=== PATIENT | male | born 1950 | race Caucasian/White ===

== ENCOUNTER 2017-10-25 08:50 | Inpatient (IN) ==
[2017-10-25] MEDS ORDERED: Ondansetron 4 MG/2 ML VIAL IVP ONE (09:07)
[2017-10-25] MEDS ORDERED: 0.9 % Sodium Chloride 1,000 ML IVC ONE (09:07)
--- NOTE | 2017-10-25 09:09 | Emergency Department Note ---
START Narrative - START START: I examined this patient and my medical decision-making was reviewed with the Resident Physician. I agree with the documented findings, disposition and treatment plan as described except to the extent set forth below. 67 yo M here for abnormal CT that showed questionable appendicitis a few days ago finally was able to make contact with him and they told him to return to the ER. he states hes been having pain in the RLQ for months. getting worse now will repeat CT abd pelvis today; consult with gen surg
--- NOTE | 2017-10-25 09:22 | Emergency Department Note ---
Disposition Clinical Impression: Intussusception of cecum Abdominal pain Qualifiers: Abdominal location: right lower quadrant Qualified Code(s): R10.31 - Right lower quadrant pain Disposition: Admitted As Inpatient Condition: Fair Abdominal Pain HPI - General Chief Complaint: ED Abdominal Pain Stated Complaint: poss appendicitis Time Seen by Provider: 10/25/17 08:58 Source: patient Mode of arrival: ambulatory Limitations: no limitations Nursing Notes Reviewed: Yes Vital Signs Reviewed: Yes - History of Present Illness HPI Narrative: 67-year-old male presents with complaint of right lower quadrant abdominal pain and diarrhea he states his symptoms been for about a month, but he has been worsening for the last few days, he is postop and upper endoscopy, EGD and his gastrologist also got a CT scan of his abdomen, was an abdominal CT without a pelvis without oral contrast, and it showed evidence of mild periappendiceal stranding concerning for possible appendicitis, he would talk to the patient today. Patient states his pain is aching and cramping. Nonradiating, mostly in his right lower quadrant, associated with loose stool but denies melena, hematochezia. The patient states that his symptoms have been worse for the last few days. He reports nausea but no emesis. He denies history of abdominal surgeries, anticoagulant use. Last meal 6:30 AM today was waffles. Pt Subjective Complaint: abdominal pain Onset (ago): week(s) Consistency: intermittent Location: RLQ Pain Severity: moderate Pain Scale: 5 Quality: aching Radiation: none Improves with: nothing Associated symptoms: Reports: nausea, diarrhea. Denies: vomiting, fever, chills , constipation, dysuria, hematemesis - Related Data Home Medications Medication Instructions Recorded Confirmed EPINEPHrine [Epipen] 0.3 mg IM ONCE PRN 10/25/17 10/25/17 Finasteride [Proscar] 5 mg PO DAILY 10/25/17 10/25/17 Omeprazole [PriLOSEC] 20 mg PO DAILY 10/25/17 10/25/17 Tamsulosin [Flomax] 0.4 mg PO DAILY 10/25/17 10/25/17 valACYclovir [Valtrex] 2 tab PO Q12H 10/25/17 10/25/17 Allergies Allergy/AdvReac Type Severity Reaction Status Date / Time Hydromorphone [From Dilaudid] Allergy Unresponsiv Verified 10/25/17 08:55 e meperidine [From Demerol] Allergy Hives Verified 10/25/17 08:55 All systems ED: reviewed and negative except as stated. Review of Systems: As Per HPI Constitutional: Denies: fever, chills Eyes: Denies: eye pain ENT ED: Denies: ear pain Cardiovascular: Denies: chest pain, palpitations Respiratory: Denies: cough, dyspnea Gastrointestinal: Reports: as per HPI, abdominal pain, nausea, diarrhea. Denies : vomiting, hematemesis, melena Genitourinary: Denies: urgency, dysuria Musculoskeletal: Denies: back pain Integumentary: Denies: rash, abrasion Abdominal Pain PMH - Past Medical History Medical history: Reports: non-contributory Male Surgical History: Reports: no surgical history Psychiatric history: Reports: no psych history - Social History Smoking status: Never smoker Alcohol use: Reports: none Drug use: Reports: none Physical Exam Constitutional: alert and oriented, in NAD, vital signs reviewed and wnl HEENT: NCAT, sclera anicteric Neck: normal inspection, neck is supple, trachea midline Resp: normal chest inspection, CTA bilaterally, no resp distress CV: RRR, no m/g/r GI: normal inspection, Soft, or tenderness to palpation in the right lower quadrant, softly distended, no rigidity or peritoneal signs, tenderness at McBurney's point, positive Rovsing sign Back: normal inspection, negative CVA bilaterally, no tenderness to palpation Neuro: A&O3, no gross motor or sensory deficits bilaterally MSK: normal inspection, bilateral UE and LE with normal ROM Skin: No rashes, skin warm, dry, intact - General Limitations: no limitations General appearance: alert, in no apparent distress Course Course Narrative: 59-year-old male with right lower quadrant pain CT scan showed possible appendicitis a few days ago, will repeat labs repeat was CT abdomen and pelvis to evaluate for this possible appendicitis, patient had symptoms for over 4 weeks so this point in serrations for perforation view tolerate food though which is strange given his CT exam findings, a denies request any pain medication at this time - Reevaluation(s) Reevaluation #1: Was evaluated at 1145 by the nurse practitioner for the general surgery service Camelia Arriola, at 1245 call was placed to the patient inpatient neurosurgical service, empiric antibiotics were started 2 hours previously, the patient is admitted in stable condition. Time: 14:17 - Consultations Consultation #1: Consultation general surgeon Dr. Marrero, plan is for general surgical evaluation at bedside, patient started empirically on IV antibiotics after blood cultures, nothing by mouth at this time, maintenance fluids running. Time: 11:10 Vital Signs Temperature 97.5 F L 10/25/17 08:52 Pulse Rate 102 10/25/17 08:52 Respiratory Rate 18 10/25/17 08:52 Blood Pressure 166/84 10/25/17 08:52 O2 Sat by Pulse Oximetry 100 10/25/17 08:52 Temperature 98.1 F 10/25/17 14:02 Pulse Rate 72 10/25/17 14:02 Respiratory Rate 16 10/25/17 14:02 Blood Pressure 122/67 10/25/17 14:02 O2 Sat by Pulse Oximetry 98 10/25/17 14:10 Oxygen Delivery Oxygen Delivery Room Air Abdominal Pain - Differential Diagnosis Differential Diagnosis: Likely: acute appendicitis, colonic obstruction, diverticulitis, diverticulosis, endometriosis, gastroenteritis - Medical Records Medical records reviewed: Yes I reviewed the patient's medical records. - Lab Data Lab results reviewed: Yes I reviewed the patient's lab results. Result diagrams: 10/25/17 09:13 10/25/17 09:13 Lab Results 10/25/17 10/25/17 10/25/17 Range/Units 09:13 09:13 09:13 WBC 8.8 (4.3-11.1) K/mcL RBC 4.47 (4.19-5.50) M/mcL Hgb 12.9 (12.9-16.9) g/dL Hct 40.1 (37.5-50.1) % MCV 89.7 (83.0-100.0) fL MCH 28.9 (28.0-33.3) pg MCHC 32.2 (31.6-35.5) g/dL RDW 13.8 (11.5-14.5) % Plt Count 188 (140-400) K/mcL MPV 10.1 (9.4-12.4) fL Immature Gran % 0.3 (0-4) % Seg Neutrophils % 71.4 % Lymphocytes % 16.7 % Monocytes % 9.1 % Eosinophils % 2.2 % Basophils % 0.3 % Neutrophils # 6.3 (1.6-8.9) K/mcL Lymphocytes # 1.5 (0.6-4.6) K/mcL Monocytes # 0.8 (0.0-1.3) K/mcL Eosinophils # 0.2 (0.0-0.6) K/mcL Basophils # 0.0 (0.0-0.2) K/mcL PT 11.6 (9.4-12.1) Seconds INR 1.1 APTT 33.2 (26.0-36.0) Seconds Sodium 138 (136-145) mEq/L Potassium 3.6 (3.5-5.1) mEq/L Chloride 105 (98-107) mEq/L Carbon Dioxide 28 (23-29) mEq/L BUN 13 (8-23) mg/dL Creatinine 1.14 (0.70-1.30) mg/dL Est GFR ( Amer) > 60 (> 60) Est GFR (Non-Af Amer) > 60 (> 60) BUN/Creatinine Ratio 11 (6-26) Glucose 103 (70-105) mg/dL Calculated Osmolality 286 (280-300) Calcium 9.2 (8.6-10.3) mg/dL Total Bilirubin 0.5 (0.3-1.0) mg/dL Direct Bilirubin 0.1 (0.0-0.2) mg/dL Indirect Bilirubin 0.4 (0.0-1.2) mg/dL AST 15 (13-39) Units/L ALT 15 (7-52) Units/L Alkaline Phosphatase 57 (34-104) Units/L Serum Total Protein 6.8 (6.4-8.9) g/dL Albumin 4.3 (3.5-5.7) g/dL Globulin 2.5 (2.4-3.5) g/dL Albumin/Globulin Ratio 1.7 (1.1-2.2) Lipase 46 (11-82) Units/L Carcinoembryonic Ag 2.6 (Less than 5.0) ng/mL Urine Color (Yellow) Urine Clarity (Clear) Urine pH (5.0-8.0) pH Units Ur Specific [place] (1.010-1.025) Urine Protein (Neg-Trace) mg/dL Urine Glucose (UA) (Normal) mg/dL Urine Ketones (Negative) mg/dL Urine Blood (Negative) Urine Nitrite (Negative) Urine Bilirubin (Negative) Urine Urobilinogen (Normal) mg/dL Ur Leukocyte Esterase (Negative) Ur Culture Indicated? (NO) 10/25/17 Range/Units 09:20 WBC (4.3-11.1) K/mcL RBC (4.19-5.50) M/mcL Hgb (12.9-16.9) g/dL Hct (37.5-50.1) % MCV (83.0-100.0) fL MCH (28.0-33.3) pg MCHC (31.6-35.5) g/dL RDW (11.5-14.5) % Plt Count (140-400) K/mcL MPV (9.4-12.4) fL Immature Gran % (0-4) % Seg Neutrophils % % Lymphocytes % % Monocytes % % Eosinophils % % Basophils % % Neutrophils # (1.6-8.9) K/mcL Lymphocytes # (0.6-4.6) K/mcL Monocytes # (0.0-1.3) K/mcL Eosinophils # (0.0-0.6) K/mcL Basophils # (0.0-0.2) K/mcL PT (9.4-12.1) Seconds INR APTT (26.0-36.0) Seconds Sodium (136-145) mEq/L Potassium (3.5-5.1) mEq/L Chloride (98-107) mEq/L Carbon Dioxide (23-29) mEq/L BUN (8-23) mg/dL Creatinine (0.70-1.30) mg/dL Est GFR ( Amer) (> 60) Est GFR (Non-Af Amer) (> 60) BUN/Creatinine Ratio (6-26) Glucose (70-105) mg/dL Calculated Osmolality (280-300) Calcium (8.6-10.3) mg/dL Total Bilirubin (0.3-1.0) mg/dL Direct Bilirubin (0.0-0.2) mg/dL Indirect Bilirubin (0.0-1.2) mg/dL AST (13-39) Units/L ALT (7-52) Units/L Alkaline Phosphatase (34-104) Units/L Serum Total Protein (6.4-8.9) g/dL Albumin (3.5-5.7) g/dL Globulin (2.4-3.5) g/dL Albumin/Globulin Ratio (1.1-2.2) Lipase (11-82) Units/L Carcinoembryonic Ag (Less than 5.0) ng/mL Urine Color Yellow (Yellow) Urine Clarity Clear (Clear) Urine pH 5.5 (5.0-8.0) pH Units Ur Specific [place] 1.022 (1.010-1.025) Urine Protein Negative (Neg-Trace) mg/dL Urine Glucose (UA) Normal (Normal) mg/dL Urine Ketones Negative (Negative) mg/dL Urine Blood Negative (Negative) Urine Nitrite Negative (Negative) Urine Bilirubin Negative (Negative) Urine Urobilinogen Normal (Normal) mg/dL Ur Leukocyte Esterase Negative (Negative) Ur Culture Indicated? NO (NO) - Radiology Data Radiology results reviewed: Yes I reviewed the patient's radiology results. Abdomen/Pelvis CT 10/25/17 09:05 IMPRESSION: There is masslike thickening at the ileocecal valve. There also is suggestion of a small amount of intussusception. Findings concerning for malignancy. This appears to involve the appendix, which is not well visualized. An atypical presentation of appendicitis with reactive wall thickening of the adjacent ileocecal valve is in the differential diagnosis but considered less likely. Small area of stranding of fat and possible mild wall thickening associated with the mid sigmoid colon in the anterior pelvis. Correlate for the possibility of coexistent diverticulitis in addition to the above discussed right lower quadrant process. Surgical consultation for the above is recommended. D/ / Otilio Roland MD / Otilio Roland MD Interpreting Provider: Otilio Roland MD - EKG Data EKG attestation: Yes I reviewed and interpreted this EKG. EKG shows normal: sinus rhythm (79 bpm HI 150 uricemia 3 QTC [address] segment elevations or depressions.)
[2017-10-25 09:29] LABS: Basophils % 0.3 %; Eosinophils # 0.2 K/mcL (0.0-0.6); Eosinophils % 2.2 %; Hematocrit 40.1 % (37.5-50.1); Hemoglobin 12.9 g/dL (12.9-16.9); Immature Granulocytes % 0.3 % (0-4); Lymphocytes # 1.5 K/mcL (0.6-4.6); Lymphocytes % 16.7 %; Mean Corpuscular HGB Conc 32.2 g/dL (31.6-35.5); Mean Corpuscular Hemoglobin 28.9 pg (28.0-33.3); Mean Corpuscular Volume 89.7 fL (83.0-100.0); Mean Platelet Volume 10.1 fL (9.4-12.4); Monocytes # 0.8 K/mcL (0.0-1.3); Monocytes % 9.1 %; Neutrophils # 6.3 K/mcL (1.6-8.9); Platelet Count 188 K/mcL (140-400); Red Blood Count 4.47 M/mcL (4.19-5.50); Red Cell Distribution Width 13.8 % (11.5-14.5); Segmented Neutrophils % 71.4 %
[2017-10-25 09:35] LABS: Bilirubin,Urine Negative (Negative); Blood,Urine Negative (Negative); Clarity,Urine Clear (Clear); Color,Urine Yellow (Yellow); Glucose,Urine (UA) Normal (Normal); Ketones,Urine Negative (Negative); Leukocyte Esterase,Urine Negative (Negative); Nitrite,Urine Negative (Negative); PH,Urine 5.5 pH Units (5.0-8.0); Protein,Urine Negative (Neg-Trace); Specific Gravity,Urine 1.022 (1.010-1.025); Urobilinogen,Urine Normal (Normal)
[2017-10-25 09:35] LABS: INR 1.1; Prothrombin Time 11.6 Seconds (9.4-12.1)
[2017-10-25 09:38] LABS: Activated Partial Thrombo Time 33.2 Seconds (26.0-36.0)
[2017-10-25 09:48] LABS: Alanine Aminotransferase 15 Units/L (7-52); Albumin 4.3 g/dL (3.5-5.7); Albumin/Globulin Ratio 1.7 (1.1-2.2); Alkaline Phosphatase 57 Units/L (34-104); Aspartate Amino Transferase 15 Units/L (13-39); BUN/Creatinine Ratio 11 (6-26); Bilirubin,Direct 0.1 mg/dL (0.0-0.2); Bilirubin,Indirect 0.4 mg/dL (0.0-1.2); Bilirubin,Total 0.5 mg/dL (0.3-1.0); Blood Urea Nitrogen 13 mg/dL (8-23); Calcium 9.2 mg/dL (8.6-10.3); Carbon Dioxide 28 mEq/L (23-29); Chloride 105 mEq/L (98-107); Globulin 2.5 g/dL (2.4-3.5); Glucose 103 mg/dL (70-105); Lipase 46 Units/L (11-82); Osmolality,Calculated 286 (280-300); Potassium 3.6 mEq/L (3.5-5.1); Sodium 138 mEq/L (136-145); Total Protein 6.8 g/dL (6.4-8.9); eGFR For African Americans > 60 (> 60); eGFR For Non-African Americans > 60 (> 60)
[2017-10-25] MEDS ORDERED: MetroNIDAZOLE 500 MG/100 ML 500 MG/100 ML BAG IVPB ONE (10:40)
[2017-10-25] MEDS ORDERED: 0.9 % Sodium Chloride 1,000 ML IVC SCH (11:15)
--- NOTE | 2017-10-25 13:06 | General Surg History&Physical ---
Date of Encounter: 10/25/17 Time of Encounter: 11:45 Assessment and Plan (1) Cecum mass Current Visit: Yes Status: Acute The assessment and plan as outlined above was discussed with the patient and/or family members who expressed understanding and agreement. All questions were answered. Discussed the risks, benefits, alternatives, expected outcomes with the patient and his agreement to proceed with a right hemicolectomy with Dr. Marrero in the next 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 All questions were answered. Continue home medication regimen when able to take PO Qualifiers: Lower urinary tract symptom presence: symptoms absent Qualified Code(s): N40.0 - Benign prostatic hyperplasia without lower urinary tract symptoms (3) DVT prophylaxis Current Visit: Yes Status: Acute The assessment and plan as outlined above was discussed with the patient and/or family members who expressed understanding and agreement. All questions were answered. Heparin 5000 units subcutaneous twice daily for DVT prophylaxis EPCDs to bilateral lower extremities for DVT prophylaxis Ambulatory hallways 3 times a day with assistance History of Present Illness Chief complaint: Right sided abdominal pain HPI: Mr. Sierra is a 67 year old male with a past medical history significant for chronic diarrhea and BPH. He reports that he began having right-sided abdominal discomfort in July 2017. He describes the pain as a cramping discomfort. He states that the pain has progressed to the point that it is constant and more intense. He was seen by Dr. Harding with gastroenterology and had a CAT scan of the abdomen and pelvis completely. That study was completed this morning and shows concerns for a malignancy associated with the ileocecal valve. The patient was asked to come to the hospital for further workup and treatment. He reports that he has had diarrhea which has been ongoing since 1993. He states that he takes over the counter medications such as Imodium and Pepto-Bismol to control his symptoms. He states that these had to do this for years. He typically takes Pepto-Bismol every evening before bed. He does report black stools with taking the Pepto-Bismol otherwise he states he has liquid, brown bowel movements. He does report nausea on occasion but states that he has had no vomiting. Denies any changes in appetite. He states that he did have wall. For breakfast. He denies any melena or hematochezia. He denies any fevers or chills. He denies any unexplained weight loss. He does report weight gain. He denies any chest pain or shortness of breath. He denies any difficulty with urination. He states his last colonoscopy was complete and 2013. He reports that he had a normal exam and was scheduled to have a repeat in 5 years. He denies any family history of colon cancer. Past Med Surg Social Fam HX - Past Medical History Source: patient, old records reviewed Medical history: other (BPH, chronic diarrhea) Psychiatric history: no psych history - Past Surgical History Surgical History: no surgical history - Social History Smoking Status: Never smoker Smokeless Tobacco Status: No Alcohol use: none Drug use: none Current living situation: Home - Independent Activity Level: Independent ambulation - Family History Mother Living Status: Still Living Hx Family Cancer: Yes ("female cancer" s/p hysterectomy) Father Living Status: Age at : 62 Cause of : pancreatic cancer Hx Family Cancer: Yes (Pancreatic cancer) Medications and Allergies Tamsulosin [Flomax] 07/28/17 [History] 3 Allergy/AdvReac Type Severity Reaction Status Date / Time Hydromorphone [From Dilaudid] Allergy Unresponsiv Verified 10/25/17 08:55 e meperidine [From Demerol] Allergy Hives Verified 10/25/17 08:55 Review of Systems All systems PM: reviewed and no additional remarkable complaints except as stated (HPI) All systems PM: A 10-system review of systems was performed and is negative for pertinent findings except as documented above in the HPI. General Surgery Exam Initial Vital Signs Temp Pulse Resp BP Pulse Ox 97.5 F L 102 18 166/84 100 10/25/17 08:52 10/25/17 08:52 10/25/17 08:52 10/25/17 08:52 10/25/17 08:52 - General physical appearance well developed, well nourished, no distress, moderate pain - Eyes PERRL, normal ocular movement - ENT normal mucosa, atraumatic, normocephalic - Neck trachea midline - Respiratory normal respiratory effort, clear to auscultation - Cardiovascular Cardiovascular exam: Present: RRR - Abdomen Abdomen general surgery: Present: bowel sounds present, soft, tender Abdominal Tenderness: Present: RLQ - Integumentary Integumentary general surgery: Present: warm and dry - Neurologic Present: CN 2-12 grossly intact - Musculoskeletal Present: normal gait, normal posture - Psychiatric Psychiatric general surgery: Present: appropriate, oriented to person, oriented to place, oriented to time, speech is normal, memory intact Results - Labs 10/25/17 09:13 10/25/17 09:13 Diabetes panel 10/25/17 Range/Units 09:13 Sodium 138 (136-145) mEq/L Potassium 3.6 (3.5-5.1) mEq/L Chloride 105 (98-107) mEq/L Carbon Dioxide 28 (23-29) mEq/L BUN 13 (8-23) mg/dL Creatinine 1.14 (0.70-1.30) mg/dL Glucose 103 (70-105) mg/dL Calcium 9.2 (8.6-10.3) mg/dL AST 15 (13-39) Units/L ALT 15 (7-52) Units/L Alkaline Phosphatase 57 (34-104) Units/L Albumin 4.3 (3.5-5.7) g/dL Calcium panel 10/25/17 Range/Units 09:13 Calcium 9.2 (8.6-10.3) mg/dL Albumin 4.3 (3.5-5.7) g/dL Pituitary panel 10/25/17 Range/Units 09:13 Sodium 138 (136-145) mEq/L Potassium 3.6 (3.5-5.1) mEq/L Chloride 105 (98-107) mEq/L Carbon Dioxide 28 (23-29) mEq/L BUN 13 (8-23) mg/dL Creatinine 1.14 (0.70-1.30) mg/dL Glucose 103 (70-105) mg/dL Calcium 9.2 (8.6-10.3) mg/dL Adrenal panel 10/25/17 Range/Units 09:13 Sodium 138 (136-145) mEq/L Potassium 3.6 (3.5-5.1) mEq/L Chloride 105 (98-107) mEq/L Carbon Dioxide 28 (23-29) mEq/L BUN 13 (8-23) mg/dL Creatinine 1.14 (0.70-1.30) mg/dL Glucose 103 (70-105) mg/dL Calcium 9.2 (8.6-10.3) mg/dL Total Bilirubin 0.5 (0.3-1.0) mg/dL AST 15 (13-39) Units/L ALT 15 (7-52) Units/L Alkaline Phosphatase 57 (34-104) Units/L Albumin 4.3 (3.5-5.7) g/dL All other labs normal. - Imaging CT scan - abdomen: report reviewed CT scan - pelvis: report reviewed - Attending Attestation For this encounter, I have reviewed the POLICE COMMISSIONER or PA documentation, treatment plan, and medical decision making; and I have had face to face time with this patient.
[2017-10-25] MEDS ORDERED: Ondansetron 4 MG/2 ML VIAL IVP PRN (13:17)
[2017-10-25] MEDS ORDERED: Naloxone 0.4 MG/ML INJ IVP PRN ×2 (13:17→23:31)
[2017-10-25] MEDS ORDERED: *HR* OxyCODONE Immed Rel 5 MG TABLET PO PRN ×2 (13:23→23:31)
[2017-10-25] MEDS ORDERED: Morphine Oral CONC 5 MG/0.25 ML ORAL.SYG PO PRN (13:24)
[2017-10-25] MEDS: 0.9 % Sodium Chloride 1,000 ML IVC SCH ×2 (14:03→23:27)
[2017-10-25] MEDS: Ketorolac 15 MG/ML VIAL IVP SCH ×2 (14:08→23:24)
[2017-10-25 14:12] LABS: Carcinoembryonic Antigen 2.6 ng/mL (Less than 5.0)
--- NOTE | 2017-10-25 14:39 | Electrocardiograph Report ---
[place] [id number] Test Date: 2017-10-25 Pat Name: Alexis Sierra Department: [id number] Room: 3B13 Gender: M Play Writer: : 1950 Requested By: Anastacio Melchor Order Number: [id number] Reading MD: Donell Cummins DO Measurements Intervals Bessie Rate: 79 P: 51 NH: 150 QRS: 17 QRSD: 83 T: 43 QT: 373 QTc: 407 Interpretive Statements SINUS RHYTHM Electronically Signed On 10-25-2017 14:37:36 EST by Donell Cummins DO
[2017-10-25] MEDS ORDERED: cefOXitin 2,000 MG in Water for inj. (sterile) 20 ML 10 ML IVP ONE (16:00)
[2017-10-25] MEDS ORDERED: *HR* Ropivacaine/PF 0.5% 20 ML VIAL ONE (18:45)
--- NOTE | 2017-10-25 18:51 | Anesthesia Evaluation PreOp ---
Date of Encounter: 10/25/17 Time of Encounter: 18:49 - Past History Planned Operation: Robotic Right Hemicolectomy Cardiac History: Denies any Significant Hx Pulmonary History: Denies Any Significant HX RODEO RIDER History: Denies Any Significant HX Other Medical History: Renal (BPH), GERD Anesthesia History: Past Anesthesia (no prior surgery) Alcohol Use: none Drug use: none Medications and Allergies EPINEPHrine [Epipen] 0.3 mg IM ONCE PRN 10/25/17 [History] Finasteride [Proscar] 5 mg PO DAILY 10/25/17 [History] Omeprazole [PriLOSEC] 20 mg PO DAILY 10/25/17 [History] Tamsulosin [Flomax] 0.4 mg PO DAILY 10/25/17 [History] valACYclovir [Valtrex] 2 tab PO Q12H 10/25/17 [History] 3 Allergy/AdvReac Type Severity Reaction Status Date / Time Hydromorphone [From Dilaudid] Allergy Unresponsiv Verified 10/25/17 08:55 e meperidine [From Demerol] Allergy Hives Verified 10/25/17 08:55 - Meds/Allergy Pre-op Review Medications Reviewed: Yes Allergies Reviewed: Yes Beta Blockers on Current Med List: No Anesthesia Results - Labs 10/25/17 09:13 10/25/17 09:13 - Imaging EKG: report reviewed (10/25/2017 SINUS RHYTHM) Additional studies: 03/13/2012 Stress Impression: Stress Note * Resting ECG demonstrated normal sinus rhythm. * No baseline arrhythmias were noted. * EKG is negative for ischemia. * No arrhythmias were noted during stress * The exercise capacity was fair. * Patient had no chest pain during stress. Hemodynamic response * The patient demonstrated normal blood pressure response. Study Quality/Desc. * Study quality is average Gated EF % * Gated EF = 69% Left Ventricle * The left ventricle does not appear dilated. NORMALS * Normal wall motion in stress. * Normal Segmental Perfusion in rest. Inferior Perfusion Stress * The basal inferoseptal segment shows a mild reduction in perfusion. TID * There is no evidence of transient ischemic dilatation Nuclear comments * Mild Reversible defect - basal infero-septal wall suggestive of ischemia. * Negative for infarct. DR DURANT NOTIFIED. Stress Test Summary: Stress Test Type: Treadmill Protocol: Gideon Baseline Information: Initial Heart Rate: 75 Blood Pressure: 104/70 Stress Information: Stress Time: 5 min 00 sec Test Terminated Due to: Target heart rate achieved Maximum Blood Pressure: 164/68 Maximum Heart Rate: 155 Percent Maximum Heart Rate Achieved: 99 Double Product: 25,420 METS Reached: 6 Symptoms: No chest symptoms, No chest symptoms Nuclear Agent: Type: Tc99m Sestamibi Resting Dose: [10.36] Stress Dose: [32.8] Medication Given: Time Medication Dose Units Route Findings: Stress Note * Resting ECG demonstrated normal sinus rhythm. * No baseline arrhythmias were noted. * EKG is negative for ischemia. * No arrhythmias were noted during stress * The exercise capacity was fair. * Patient had no chest pain during stress. Hemodynamic response * The patient demonstrated normal blood pressure response. Study Quality/Desc. * Study quality is average Gated EF % * Gated EF = 69% Left Ventricle * The left ventricle does not appear dilated. NORMALS * Normal wall motion in stress. * Normal Segmental Perfusion in rest. Inferior Perfusion Stress * The basal inferoseptal segment shows a mild reduction in perfusion. TID * There is no evidence of transient ischemic dilatation Patient reports that he had left heart cath at [facility] in [place] after stress test and that it did not reveal any significant lesions Anesthesia Exam Vital Signs/O2 Sat/Glucose, Most Recent Temp Pulse Resp BP Pulse Ox 98.1 F 72 16 122/67 98 10/25/17 14:02 10/25/17 14:02 10/25/17 14:02 10/25/17 14:02 10/25/17 14:10 Blood Glucose* 118 Height: 5'8''/1.73 m Weight: 190 lbs/86.2 kg NPO (# of Hours): 8 Pain Scale: 0 Pain Scale Used: Numeric (1 - 10) - HEENT Pupil (Motor): EOMI Mallampati: II Teeth: Normal Oral Opening: Greater than 3 - RODEO RIDER LOC: Oriented RODEO RIDER Motor: Normal RUE, Normal LUE, Normal RLE, Normal LLE, Normal Face RODEO RIDER Sensory: Normal: RUE, LUE, RLE, LLE, Face - Cardiac Rhythm: Regular Murmur: None - Pulmonary Breath Sounds: bilateral Clear Respiratory Effort: Symmetrical Anesthesia Assess/Plan ASA Score: 2 Modified Stites Scale for Level of Consciousness: Cooperative, oriented, and tranquil Anesthetic Plan: General, Regional Monitoring Plan: Standard Monitors Recovery Plan: PACU
[2017-10-25] MEDS ORDERED: *HR* Midazolam HCl 5 MG/5 ML VIAL IVP ONE (19:04)
--- NOTE | 2017-10-25 19:18 | Anesthesia Procedures ---
Date of Encounter: 10/25/17 Time of Encounter: 19:16 Procedures: Anesthesia - Nerve Block Procedure Date: 10/25/17 Time: 19:16 Allergies/Adv Reactions: dilaudid, demerol Pre-op Diagnosis: cecal mass Surgical Procedure: robot rt colectomy Checklist: Correct Patient Identifier Correct side: Right Blood Thinner: No Monitor Applied: EKG, BP, Pulse Oximetry Supplemental Oxygen via Nasal Cannula (L/min): 3 Sedation: Versed (mg): 5 Indication: Post Op Analgesia Pre-op Neuro Deficits: No Block Type: Other (tap) Catheter placed: No Sterile Technique: Yes Ultrasound used: Yes Anatomy identified: Yes Visual spread of Local: Yes Blood on Needle Aspiration: No Smooth Injection of Local: Yes Pain with Injection of Local: No Prep: Chlorhexadine Needle: 21 x 100 mm Stimuplex Local: Ropivacaine (0.25 20cc each side) Volume (cc): 40 Number of Attempts: 1 Complications: None/effective block Vitals: 127/70 78 16 98% Comments: aseptic, ttolerated well, VSS
[2017-10-25] MEDS ORDERED: *HR* Propofol 200 MG/20 ML VIAL IVP ONE (19:44)
[2017-10-25] MEDS ORDERED: Dexamethasone 4 MG/ML VIAL ONE (19:45)
[2017-10-25] MEDS ORDERED: Lidocaine -MPF 2% 2 ML VIAL ONE (19:45)
[2017-10-25] MEDS ORDERED: *HR* Succinylcholine 200 MG/10 ML VIAL IVP ONE (19:45)
[2017-10-25] MEDS ORDERED: Ondansetron 4 MG/2 ML VIAL ONE (19:45)
[2017-10-25] MEDS ORDERED: *HR* Rocuronium Bromide 50 MG/5 ML VIAL ONE (19:45)
[2017-10-25] MEDS ORDERED: Ketamine *HR* 500 MG/10 ML MDV ONE (19:55)
[2017-10-25] MEDS: MORPHINE SUL Oral CONC 10 MG/0.5 ML ORAL.SYG SL PRN ×2 (22:29→22:35)
[2017-10-25] MEDS ORDERED: MORPHINE SUL Oral CONC 10 MG/0.5 ML ORAL.SYG SL PRN (23:31)
[2017-10-25] MEDS ORDERED: MORPHINE SUL Oral CONC 10 MG/0.5 ML ORAL.SYG PO PRN (23:31)
[2017-10-25] MEDS ORDERED: Chloraseptic Spray 177 ML BOTTLE MM PRN (23:38)
--- NOTE | 2017-10-25 23:58 | Anesthesia Evaluation Post Op ---
Date of Encounter: 10/25/17 Time of Encounter: 23:57 - Vital Signs Vital Signs: Vital Signs/O2 Sat, Most Current Temp Pulse Resp BP Pulse Ox 97.6 F 78 16 115/69 96 10/25/17 23:21 10/25/17 23:21 10/25/17 23:21 10/25/17 23:21 10/25/17 23:21 - Lungs Lungs: Clear Ascult./Percussion - Airway Airway: Non-obstructed - Cardiovascular Regular Rate - Mental Status Mental Status: Alert & Oriented, Answers Appropriately - Pain Pain Scale: 2 Pain Scale used: Numeric (1 - 10) - Nausea Vomiting Nausea Vomiting: Not Present - Hydration Hydration: NPO, Hair catheter - Discharge PostOp Status: Transfer Patient to floor
[2017-10-26] MEDS: Ondansetron 4 MG/2 ML VIAL IVP PRN ×3 (00:42→16:19)
[2017-10-26] MEDS ORDERED: Ketorolac 15 MG/ML VIAL IVP SCH (01:30)
[2017-10-26 04:49] LABS: Basophils % 0.1 %; Hematocrit 32.9 % (37.5-50.1); Immature Granulocytes % 0.3 % (0-4); Lymphocytes # 0.6 K/mcL (0.6-4.6); Lymphocytes % 5.5 %; Mean Corpuscular HGB Conc 31.3 g/dL (31.6-35.5); Mean Corpuscular Hemoglobin 28.5 pg (28.0-33.3); Mean Corpuscular Volume 90.9 fL (83.0-100.0); Mean Platelet Volume 10.4 fL (9.4-12.4); Monocytes # 0.7 K/mcL (0.0-1.3); Monocytes % 6.5 %; Neutrophils # 9.4 K/mcL (1.6-8.9); Platelet Count 185 K/mcL (140-400); Red Blood Count 3.62 M/mcL (4.19-5.50); Segmented Neutrophils % 87.6 %
[2017-10-26 04:50] LABS: Hemoglobin 10.3 g/dL (12.9-16.9)
[2017-10-26 05:07] LABS: BUN/Creatinine Ratio 10 (6-26); Blood Urea Nitrogen 12 mg/dL (8-23); Calcium 8.3 mg/dL (8.6-10.3); Carbon Dioxide 24 mEq/L (23-29); Chloride 107 mEq/L (98-107); Glucose 156 mg/dL (70-105); Osmolality,Calculated 291 (280-300); Potassium 4.1 mEq/L (3.5-5.1); Sodium 139 mEq/L (136-145); eGFR For African Americans > 60 (> 60); eGFR For Non-African Americans > 60 (> 60)
[2017-10-26] MEDS ORDERED: *HR* Heparin 5,000 UNIT/ML VIAL SQ ONE ×2 (06:00)
[2017-10-26] MEDS: Ketorolac 15 MG/ML VIAL IVP SCH ×2 (06:01→10:51)
[2017-10-26] MEDS: 0.9 % Sodium Chloride 1,000 ML IVC SCH ×3 (07:52→22:39)
[2017-10-26] MEDS ORDERED: Pantoprazole 40 MG VIAL IVP SCH ×2 (09:00)
--- NOTE | 2017-10-26 10:33 | General Surgery Progress Note ---
Date of Encounter: 10/26/17 Time of Encounter: 10:00 - Assessment and Plan (1) Cecum mass Current Visit: Yes Status: Acute Aprox 11 hours post-op of by Dr. Marrero. Alexis states his abdominal discomfort is poorly controlled because he doesn't like to take the narcotics as they make him feel nauseated. He has not gotten out of bed, but requests assistance to get up. His bowel signs are faint and hypoactive at best as expected. His abdominal exam is overall benign. Plan: -await return bowel function -continue supportive care and discomfort management: add scheduled IV ofirmev to alternate with scheduled ketorolac and continue PRN sublingual narcotic. -Continue G.I. and DVT prophylaxis -out of bed to chair at least TID and ambulate and halls. -NPO except limited ice chips for comfort. He may suck on hardtack candy or chew gum also. When bowel sounds returned we will consider advancing to clear liquid diet. -Continue martinez until he is able to resume his home BPH medications. -Repeat am labs (2) BPH (benign prostatic hyperplasia) Current Visit: Yes Status: Chronic See above Qualifiers: Lower urinary tract symptom presence: symptoms absent Qualified Code(s): N40.0 - Benign prostatic hyperplasia without lower urinary tract symptoms (3) DVT prophylaxis Current Visit: Yes Status: Acute EPCDs while in bed. Heparin SQ BID AMbulate and up to chair TID Subjective Patient reports: no new complaints, still having pain (States it feels like "surgery soreness"), voiding w/o difficulty (Per martinez; states difficulty urinating at baseline and take finesteride and flomax), no flatus, no bowel movement, nausea, afebrile, other (runny nose) Objective Vital Signs - Last 8 Hours Temp Pulse Resp BP Pulse Ox 10/26/17 06:47 98.4 F 79 16 93/58 96 10/26/17 04:34 79 102/63 99 10/26/17 03:10 99.6 F 79 18 96/62 100 Intake and Output 10/25/17 10/26/17 10/26/17 23:59 07:59 15:59 Intake Total 0 / 0 Output Total 25 / 25 300 / 300 Balance -25 / -25 -300 / -300 Intake: Oral 0 / 0 Output: Estimated Blood Loss 25 / 25 Catheter 300 / 300 Other: Blood Glucose* 155 - General physical appearance no distress, moderate pain - Eyes normal ocular movement - ENT normal nares, normal mucosa, atraumatic, normocephalic - Neck Neck exam: trachea midline, no venous distension - Respiratory normal expansion, normal respiratory effort, clear to auscultation - Cardiovascular Cardiovascular exam: Present: RRR - Abdomen Abdomen: Present: soft, tender (Expected postoperative). Absent: bowel sounds present (FAINT HYPOACTIVE AT BEST) Hernia: none - Incision Incision: Present: clean and dry, intact - Neurologic normal coordination, normal sensation - Musculoskeletal normal posture - Psychiatric oriented to time, oriented to person, oriented to place, speech is normal, memory intact - Labs 10/26/17 03:19 10/26/17 03:19 Diabetes panel 10/26/17 Range/Units 03:19 Sodium 139 (136-145) mEq/L Potassium 4.1 (3.5-5.1) mEq/L Chloride 107 (98-107) mEq/L Carbon Dioxide 24 (23-29) mEq/L BUN 12 (8-23) mg/dL Creatinine 1.20 (0.70-1.30) mg/dL Glucose 156 H (70-105) mg/dL Calcium 8.3 L (8.6-10.3) mg/dL Calcium panel 10/26/17 Range/Units 03:19 Calcium 8.3 L (8.6-10.3) mg/dL Pituitary panel 10/26/17 Range/Units 03:19 Sodium 139 (136-145) mEq/L Potassium 4.1 (3.5-5.1) mEq/L Chloride 107 (98-107) mEq/L Carbon Dioxide 24 (23-29) mEq/L BUN 12 (8-23) mg/dL Creatinine 1.20 (0.70-1.30) mg/dL Glucose 156 H (70-105) mg/dL Calcium 8.3 L (8.6-10.3) mg/dL Adrenal panel 10/26/17 Range/Units 03:19 Sodium 139 (136-145) mEq/L Potassium 4.1 (3.5-5.1) mEq/L Chloride 107 (98-107) mEq/L Carbon Dioxide 24 (23-29) mEq/L BUN 12 (8-23) mg/dL Creatinine 1.20 (0.70-1.30) mg/dL Glucose 156 H (70-105) mg/dL Calcium 8.3 L (8.6-10.3) mg/dL - VTE Documentation of Mechanical Device: Intermittent pneumatic compression device Consult Discharge Plan - Plan [facility]errals: [facility] [Primary Care Provider[facility] -
[2017-10-26] MEDS ORDERED: Acetaminophen IV 500 MG/50 ML INFUS..BTL IVPB ONE ×2 (10:39→14:45)
[2017-10-26] MEDS ORDERED: 0.9 % Sodium Chloride 1,000 ML IVC ONE (10:53)
[2017-10-26] MEDS ORDERED: *HR* FentaNYL (PF) 100 MCG/2 ML VIAL IVP ONE ×2 (13:44→14:44)
[2017-10-26] MEDS ORDERED: *HR* Promethazine 25 MG/ML VIAL IVP PRN (13:46)
--- NOTE | 2017-10-26 14:13 | Event Note ---
Date of Encounter: 10/26/17 Time of Encounter: 13:45 Notified by bedside RN that patient was "calling out" in pain. Of note patient had refused all narcotic pain medication since out of surgery d/t "they make me nauseated or itchy and I just didn't want them." He states the Zofran does not help prevent nausea with pain medication. Reviewed with patient that the increased discomfort he was feeling at this time was likely due to post- surgical discomfort that had not been controlled given his refusal of pain medication. Patient is accepting of small dose of fentayl (25 mcg) and promethazine (12.5 mg) to prevent nausea to attempt to control this discomfort and nausea. Ice packs have been applied for comfort. SBP is stable at 122 s/p 1L NS bolus; HR in the 80s. Will continue to monitor and assess for discomfort management. Of note he did have a small drop in hgb after surgery but there are no overt signs of bleeding. His abdomen is with voluntary guarding at this time. There is no ecchymosis and his incisions are clean and dry.
[2017-10-26] MEDS ORDERED: *HR* FentaNYL PATCH 12 MCG PATCH TD SCH (14:15)
[2017-10-26] MEDS ORDERED: 0.9 % Sodium Chloride 500 ML IVC ONE (14:48)
[2017-10-26] MEDS ORDERED: Simethicone 80 MG TAB.CHEW PO PRN ×2 (14:49→19:28)
[2017-10-26 14:54] LABS: Hematocrit 29.4 % (37.5-50.1); Hemoglobin 9.6 g/dL (12.9-16.9)
--- NOTE | 2017-10-26 16:02 | Event Note ---
Date of Encounter: 10/26/17 Time of Encounter: 16:00 This RUG SETTER AXMINSTER and Tete Timmons APRN accompanied pt to CT. Results pending. Upon return to room, patient assisted in repositioning, asked for swabs for his mouth , asked for O2 to be repositioned, and asked for ice packs. Ice packs replaced, swabs given, O2 at 2L nc. Bedside RN at bedside for IV Ofirmev and bolus ml NS. Pt inquires for his family members to return. Will continue to monitor.
[2017-10-26] MEDS ORDERED: *HR* FentaNYL (PF) 100 MCG/2 ML VIAL ONE ×2 (16:49→17:24)
[2017-10-26] MEDS ORDERED: *HR* Propofol 200 MG/20 ML VIAL IVP ONE (16:49)
[2017-10-26] MEDS ORDERED: *HR* Midazolam HCl 2 MG/2 ML VIAL ONE ×2 (16:49→17:01)
[2017-10-26] MEDS ORDERED: *HR* Succinylcholine 200 MG/10 ML VIAL IVP ONE (16:51)
[2017-10-26] MEDS ORDERED: *HR* Rocuronium Bromide 50 MG/5 ML VIAL ONE (16:51)
[2017-10-26] MEDS ORDERED: Lidocaine -MPF 2% 2 ML VIAL ONE (16:51)
[2017-10-26] MEDS ORDERED: Acetaminophen IV 1,000 MG/100 ML INFUS..BTL ONE (16:53)
[2017-10-26] MEDS ORDERED: CloNIDine Patch 0.1 MG PATCH (WEEKLY) ONE (16:54)
[2017-10-26] MEDS ORDERED: Acetaminophen IV 1,000 MG/100 ML INFUS..BTL IVPB SCH (17:00)
[2017-10-26] MEDS ORDERED: Ketorolac 30 MG/ML VIAL ONE (17:01)
[2017-10-26] MEDS ORDERED: Ketamine *HR* 500 MG/10 ML MDV ONE (17:03)
[2017-10-26] MEDS ORDERED: Ondansetron 4 MG/2 ML VIAL ONE (17:35)
[2017-10-26] MEDS ORDERED: Dexamethasone 4 MG/ML VIAL ONE (17:35)
[2017-10-26] MEDS ORDERED: Neostigmine Methylsulfate 3 MG/3 ML SYRINGE ONE (17:47)
[2017-10-26] MEDS ORDERED: *HR* PHENYLEPHRINE 1,000 MCG/10 ML SYRINGE IVP ONE (17:48)
[2017-10-26] MEDS ORDERED: *HR* Heparin 5,000 UNIT/ML VIAL SQ SCH (18:00)
--- NOTE | 2017-10-26 18:31 | Operative Note ---
Date of procedure: 10/25/17 Pre-op diagnosis: Cecal mass Post-op diagnosis: same Procedure: Robotic right hemicolectomy Anesthesia: GETA Surgeon: Jl Marrero Was there an assistant construction superintendent present: Yes Facility Examiner: Magali Gay Estimated blood loss (cc): 50 Specimen: Right colon Condition: stable Disposition: same day Procedure in Detail: After informed consent, the patient was taken the operating room placed in the supine position. After adequate sedation and anesthesia the abdomen was prepped and draped. [address] the umbilicus and a Verres needle was inserted into the abdomen. A pneumoperitoneum was created. 3 individual 8 mm cannulas were placed along with a 13 mm cannula. Once in place the [employer] XI robot was brought over the patient's right hip and positioned. The ports were connected the robot. Attention was replaced. Small bowel was swept to the left lateral position. The cecum and ileum were grasped and the vascular pedicle was identified. A window was created. The duodenum was readily identified and kept out of harm's way. The vascular pedicle was taken with a vessel sealer. The remainder of the colon was dissected free from the retroperitoneum. Once the transverse mesocolon had been divided to the level of the transverse colon it was stapled with a robotic stapler. The same was performed for the terminal ileum. Once that was completed the remainder of the lateral attachments were taken down with a vessel sealer. Colon was parked over the patient's right abdomen. The terminal ileum was then placed next to the transverse colon. 2 enterotomies were created and the colon and the small bowel and a 45 mm stapler was fired down both limbs. The common enterotomy was closed with 2-0 silk suture 2. Once completed the ports were removed and the pneumoperitoneum was evacuated. A small midline incision was made and the specimen was retrieved through a wound protection bag. Once finished the midline was closed with a looped PDS suture and the 13 mm cannula was closed with a 0 Vicryl. Silvia were placed in the skin.
--- NOTE | 2017-10-26 19:20 | Anesthesia Evaluation Post Op ---
Date of Encounter: 10/26/17 Time of Encounter: 19:19 - Vital Signs Vital Signs: Vital Signs/O2 Sat, Most Current Temp Pulse Resp BP Pulse Ox 99.1 F 92 22 121/71 97 10/26/17 19:04 10/26/17 19:14 10/26/17 19:14 10/26/17 19:14 10/26/17 19:14 - Lungs Lungs: Clear Ascult./Percussion - Airway Airway: Non-obstructed - Cardiovascular Regular Rate - Mental Status Mental Status: Alert & Oriented, Answers Appropriately - Pain Pain Scale: 0 Pain Scale used: Numeric (1 - 10) - Nausea Vomiting Nausea Vomiting: Not Present - Hydration Hydration: NPO, Hair catheter - Discharge PostOp Status: Transfer Patient to floor
[2017-10-26] MEDS ORDERED: Naloxone 0.4 MG/ML INJ IVP PRN (19:28)
[2017-10-26] MEDS ORDERED: Chloraseptic Spray 177 ML BOTTLE MM PRN (19:28)
[2017-10-26] MEDS ORDERED: *HR* OxyCODONE Immed Rel 5 MG TABLET PO PRN (19:28)
[2017-10-26] MEDS: Acetaminophen IV 1,000 MG/100 ML INFUS..BTL IVPB SCH (22:38)
[2017-10-27] MEDS: Ondansetron 4 MG/2 ML VIAL IVP PRN ×3 (03:01→21:35)
[2017-10-27] MEDS: MORPHINE SUL Oral CONC 10 MG/0.5 ML ORAL.SYG PO PRN ×5 (03:03→21:35)
[2017-10-27 04:09] LABS: Hematocrit 28.4 % (37.5-50.1); Hemoglobin 9.1 g/dL (12.9-16.9); Immature Granulocytes % 0.2 % (0-4); Lymphocytes # 0.6 K/mcL (0.6-4.6); Lymphocytes % 11.4 %; Mean Corpuscular Hemoglobin 29.3 pg (28.0-33.3); Mean Corpuscular Volume 91.3 fL (83.0-100.0); Mean Platelet Volume 10.6 fL (9.4-12.4); Monocytes # 0.4 K/mcL (0.0-1.3); Monocytes % 7.1 %; Platelet Count 154 K/mcL (140-400); Red Blood Count 3.11 M/mcL (4.19-5.50); Red Cell Distribution Width 14.6 % (11.5-14.5); Segmented Neutrophils % 81.3 %
[2017-10-27 04:25] LABS: BUN/Creatinine Ratio 13 (6-26); Blood Urea Nitrogen 16 mg/dL (8-23); Calcium 7.6 mg/dL (8.6-10.3); Carbon Dioxide 25 mEq/L (23-29); Chloride 109 mEq/L (98-107); Glucose 137 mg/dL (70-105); Osmolality,Calculated 291 (280-300); Potassium 4.3 mEq/L (3.5-5.1); Sodium 139 mEq/L (136-145); eGFR For African Americans > 60 (> 60); eGFR For Non-African Americans 57 (> 60)
[2017-10-27 04:56] LABS: Platelet Estimate Normal (Normal)
[2017-10-27] MEDS: Acetaminophen IV 1,000 MG/100 ML INFUS..BTL IVPB SCH ×3 (05:18→16:53)
[2017-10-27] MEDS: 0.9 % Sodium Chloride 1,000 ML IVC SCH ×2 (07:48→16:54)
[2017-10-27] MEDS: *HR* Promethazine 25 MG/ML VIAL IVP PRN ×2 (07:49→14:26)
[2017-10-27] MEDS: Pantoprazole 40 MG VIAL IVP SCH (07:49)
--- NOTE | 2017-10-27 09:50 | General Surgery Progress Note ---
Date of Encounter: 10/27/17 Time of Encounter: 09:15 - Assessment and Plan (1) Cecum mass Current Visit: Yes Status: Acute POD #2 robotic assisted right hemicolectomy with Dr. Marrero POD #1 diagnostic laparoscopy with closure of colotomy with Dr. Marrero Pathology pending CEA- 2.6 NPO while awaiting return of bowel function IV fluids- 100ml/hour Supportive care and pain control IS every 1 hour while awake PPI therapy daily Out of bed to chair and ambulate hallways TID with assistance Continue martinez catheter for Strict I&Os Continue DARWIN drain Daily wound care Repeat am labs (2) Postoperative anemia due to acute blood loss Current Visit: Yes Status: Acute Stable today Hgb- 9.6>9.1 Will continue to monitor Repeat am labs Hold SQ heparin for now (3) BPH (benign prostatic hyperplasia) Current Visit: Yes Status: Chronic Qualifiers: Lower urinary tract symptom presence: symptoms absent Qualified Code(s): N40.0 - Benign prostatic hyperplasia without lower urinary tract symptoms (4) DVT prophylaxis Current Visit: Yes Status: Acute Hold SQ heparin due to post-operative bleeding EPCDs to bilateral lower extremities for DVT prophylaxis Ambulate hallways TID with assistance Subjective Patient reports: no new complaints, feels better, still having pain, pain is less, no flatus, no bowel movement, fever (Tmax 100.6, Tcurrent 97.8) Objective Vital Signs - Last 8 Hours Temp Pulse Resp BP Pulse Ox 10/27/17 07:37 97.8 F 81 18 106/69 97 10/27/17 02:56 100.6 F H 83 16 106/70 99 Intake and Output 10/26/17 10/27/17 10/27/17 23:59 07:59 15:59 Intake Total 650 / 650 1000 / 1000 Output Total 310 / 310 445 / 445 Balance 340 / 340 555 / 555 Intake: IV Fluids 650 / 650 1000 / 1000 0.9 % Sodium Chloride 1,000 ML 1000 / 1000 @ 100 mls/hr IVC .Q10H [facility] Rx#: [id number] 0.9 % Sodium Chloride 500 ML @ 500 / 500 1875 mls/hr IVC .Q16M [facility] Rx#: [id number] Ofirmev 1,000 mg/100 ml 1,000 150 / 150 mg In 100 ml @ 400 mls/hr IVPB Q6H [facility] Rx#:[id number] Oral 0 / 0 0 / 0 Output: Estimated Blood Loss Catheter 200 / 200 350 / 350 Wound Drainage 100 / 100 95 / 95 Left Lower Abdomen 40 / 40 95 / 95 Other: Weight 89.7 kg Blood Glucose* 142 129 Patient Weight 10/27/17 23:59 Weight 89.7 kg - General physical appearance well developed, well nourished, no distress, moderate pain - Eyes normal ocular movement - ENT dry mucosa, atraumatic, normocephalic - Neck Neck exam: trachea midline - Respiratory normal respiratory effort, clear to auscultation - Cardiovascular Cardiovascular exam: Present: RRR - Abdomen Abdomen: Present: bowel sounds present (minimal, hypoactive), soft, tender ( expected post-operative tenderness), wound (DARWIN drain to bulb suction serousang. drianage noted) - Incision Incision: Present: intact, serosanguinous (minimal to midline incision; DARWIN with serousang. drainage (95ml since midnight)) - Genitourinary other (martinez catheter to SD with clear, yellow urine noted) - Integumentary no rash - Neurologic CN 2-12 grossly intact - Psychiatric oriented to time, oriented to person, oriented to place, speech is normal, memory intact - Labs 10/27/17 03:26 10/27/17 03:26 Diabetes panel 10/27/17 Range/Units 03:26 Sodium 139 (136-145) mEq/L Potassium 4.3 (3.5-5.1) mEq/L Chloride 109 H (98-107) mEq/L Carbon Dioxide 25 (23-29) mEq/L BUN 16 (8-23) mg/dL Creatinine 1.26 (0.70-1.30) mg/dL Glucose 137 H (70-105) mg/dL Calcium 7.6 L (8.6-10.3) mg/dL Calcium panel 10/27/17 Range/Units 03:26 Calcium 7.6 L (8.6-10.3) mg/dL Pituitary panel 10/27/17 Range/Units 03:26 Sodium 139 (136-145) mEq/L Potassium 4.3 (3.5-5.1) mEq/L Chloride 109 H (98-107) mEq/L Carbon Dioxide 25 (23-29) mEq/L BUN 16 (8-23) mg/dL Creatinine 1.26 (0.70-1.30) mg/dL Glucose 137 H (70-105) mg/dL Calcium 7.6 L (8.6-10.3) mg/dL Adrenal panel 10/27/17 Range/Units 03:26 Sodium 139 (136-145) mEq/L Potassium 4.3 (3.5-5.1) mEq/L Chloride 109 H (98-107) mEq/L Carbon Dioxide 25 (23-29) mEq/L BUN 16 (8-23) mg/dL Creatinine 1.26 (0.70-1.30) mg/dL Glucose 137 H (70-105) mg/dL Calcium 7.6 L (8.6-10.3) mg/dL - VTE Documentation of Mechanical Device: Intermittent pneumatic compression device Consult Discharge Plan - Plan [facility]errals: [facility] [Primary Care Provider] - - Attending Attestation For this encounter, I have reviewed the RESIDENTIAL SALES REP or PA documentation, treatment plan, and medical decision making; and I have had face to face time with this patient.
[2017-10-28] MEDS: Acetaminophen IV 1,000 MG/100 ML INFUS..BTL IVPB SCH ×4 (00:04→18:04)
[2017-10-28] MEDS: 0.9 % Sodium Chloride 1,000 ML IVC SCH ×2 (03:40→14:50)
[2017-10-28 04:09] LABS: Basophils % 0.2 %; Eosinophils # 0.1 K/mcL (0.0-0.6); Eosinophils % 2.3 %; Hematocrit 25.5 % (37.5-50.1); Hemoglobin 8.1 g/dL (12.9-16.9); Immature Granulocytes % 0.7 % (0-4); Lymphocytes # 0.7 K/mcL (0.6-4.6); Lymphocytes % 11.7 %; Mean Corpuscular HGB Conc 31.8 g/dL (31.6-35.5); Mean Corpuscular Hemoglobin 28.9 pg (28.0-33.3); Mean Corpuscular Volume 91.1 fL (83.0-100.0); Mean Platelet Volume 10.4 fL (9.4-12.4); Monocytes # 0.4 K/mcL (0.0-1.3); Monocytes % 6.7 %; Neutrophils # 4.8 K/mcL (1.6-8.9); Platelet Count 153 K/mcL (140-400); Red Cell Distribution Width 14.7 % (11.5-14.5); Segmented Neutrophils % 78.4 %
[2017-10-28 04:44] LABS: BUN/Creatinine Ratio 15 (6-26); Blood Urea Nitrogen 17 mg/dL (8-23); Calcium 7.6 mg/dL (8.6-10.3); Carbon Dioxide 25 mEq/L (23-29); Chloride 110 mEq/L (98-107); Glucose 93 mg/dL (70-105); Osmolality,Calculated 289 (280-300); Sodium 139 mEq/L (136-145); eGFR For African Americans > 60 (> 60); eGFR For Non-African Americans > 60 (> 60)
--- NOTE | 2017-10-28 08:05 | General Surgery Progress Note ---
<Nelly Rico - Last Filed: 10/28/17 13:51> Date of Encounter: 10/28/17 Time of Encounter: 08:03 - Assessment and Plan (1) Cecum mass Current Visit: Yes Status: Acute POD #2 diagnostic laparoscopy with closure of colotomy with Dr. Marrero POD #3 robotic assisted right hemicolectomy with Dr. Marrero Pathology pending CEA- 2.6 NPO while awaiting return of bowel function IV fluids Supportive care and pain control IS every 1 hour while awake PPI therapy daily Out of bed to chair and ambulate hallways TID with assistance Continue DARWIN drain Daily wound care Repeat am labs (2) BPH (benign prostatic hyperplasia) Current Visit: Yes Status: Chronic Plan to resume home medication Qualifiers: Lower urinary tract symptom presence: symptoms absent Qualified Code(s): N40.0 - Benign prostatic hyperplasia without lower urinary tract symptoms (3) Postoperative anemia due to acute blood loss Current Visit: Yes Status: Acute Hgb down 1 pt this AM. Will continue to monitor Repeat am labs (4) DVT prophylaxis Current Visit: Yes Status: Acute Hold SQ heparin due to concern post-operative bleeding EPCDs to bilateral lower extremities for DVT prophylaxis Ambulate hallways TID with assistance Subjective Patient reports: afebrile Narrative: No acute events overnight. Denies passing gas or BM yet. Pt states postoperative nausea well-controlled with medication. States pain control adequate. Objective Vital Signs - Last 8 Hours Temp Pulse Resp BP Pulse Ox 10/28/17 07:03 98.9 F 87 16 107/71 94 10/28/17 02:49 98.5 F 78 16 108/71 99 Intake and Output 10/27/17 10/28/17 10/28/17 23:59 07:59 15:59 Intake Total 1100 / 1100 1100 / 1100 Output Total 375 / 375 1425 / 1425 Balance 725 / 725 -325 / -325 Intake: IV Fluids 1100 / 1100 1100 / 1100 0.9 % Sodium Chloride 1,000 ML 1000 / 1000 1000 / 1000 @ 100 mls/hr IVC .Q10H [facility] Rx#: [id number] Ofirmev 1,000 mg/100 ml 1,000 100 / 100 100 / 100 mg In 100 ml @ 400 mls/hr IVPB Q6H [facility] Rx#:[id number] Output: Urine 450 / 450 Catheter 300 / 300 900 / 900 Urethral (Hair) 300 / 300 600 / 600 Wound Drainage 75 / 75 75 / 75 Left Lower Abdomen 75 / 75 75 / 75 Other: Weight 89.947 kg Blood Glucose* 90 92 Patient Weight 10/28/17 23:59 Weight 89.947 kg - General physical appearance no distress - Eyes normal ocular movement - Respiratory normal expansion, normal respiratory effort, clear to auscultation - Cardiovascular Cardiovascular exam: Present: regular rhythm. Absent: murmurs - Abdomen Abdomen: Present: bowel sounds present (intermittent, ), tender (expected post- op tenderness ) - Incision Incision: Present: clean and dry (dressing). Absent: draining, purulent (No purulent drainage from edges ) - Neurologic normal coordination - Psychiatric oriented to time, oriented to person, oriented to place, speech is normal - Labs 10/28/17 03:02 10/28/17 03:02 Diabetes panel 10/28/17 Range/Units 03:02 Sodium 139 (136-145) mEq/L Potassium 4.0 (3.5-5.1) mEq/L Chloride 110 H (98-107) mEq/L Carbon Dioxide 25 (23-29) mEq/L BUN 17 (8-23) mg/dL Creatinine 1.10 (0.70-1.30) mg/dL Glucose 93 (70-105) mg/dL Calcium 7.6 L (8.6-10.3) mg/dL Calcium panel 10/28/17 Range/Units 03:02 Calcium 7.6 L (8.6-10.3) mg/dL Pituitary panel 10/28/17 Range/Units 03:02 Sodium 139 (136-145) mEq/L Potassium 4.0 (3.5-5.1) mEq/L Chloride 110 H (98-107) mEq/L Carbon Dioxide 25 (23-29) mEq/L BUN 17 (8-23) mg/dL Creatinine 1.10 (0.70-1.30) mg/dL Glucose 93 (70-105) mg/dL Calcium 7.6 L (8.6-10.3) mg/dL Adrenal panel 10/28/17 Range/Units 03:02 Sodium 139 (136-145) mEq/L Potassium 4.0 (3.5-5.1) mEq/L Chloride 110 H (98-107) mEq/L Carbon Dioxide 25 (23-29) mEq/L BUN 17 (8-23) mg/dL Creatinine 1.10 (0.70-1.30) mg/dL Glucose 93 (70-105) mg/dL Calcium 7.6 L (8.6-10.3) mg/dL - VTE Documentation of Mechanical Device: Intermittent pneumatic compression device Consult Discharge Plan - Plan Referrals: [facility] [Primary Care Provider] - <Robert Velazquez - Last Filed: 10/28/17 19:26> Date of Encounter: 10/28/17 Objective Vital Signs - Last 8 Hours Temp Pulse Resp BP Pulse Ox 10/28/17 19:02 98.5 F 84 16 99/63 98 10/28/17 17:03 97 F L 92 17 117/74 97 10/28/17 11:53 98.9 F 82 16 122/76 97 Intake and Output 10/28/17 10/28/17 10/28/17 07:59 15:59 23:59 Intake Total 1200 / 1200 1100 / 1100 Output Total 1425 / 1425 150 / 150 Balance -225 / -225 950 / 950 Intake: IV Fluids 1200 / 1200 1100 / 1100 0.9 % Sodium Chloride 1,000 ML 1000 / 1000 1000 / 1000 @ 100 mls/hr IVC .Q10H [facility] Rx#: [id number] Ofirmev 1,000 mg/100 ml 1,000 200 / 200 100 / 100 mg In 100 ml @ 400 mls/hr IVPB Q6H [facility] Rx#:[id number] Output: Urine 450 / 450 Catheter 900 / 900 Urethral (Hair) 600 / 600 Wound Drainage 75 / 75 150 / 150 Left Lower Abdomen 75 / 75 150 / 150 Other: Weight 89.947 kg Blood Glucose* 92 98 73 Patient Weight 10/28/17 23:59 Weight 89.947 kg - Labs 10/28/17 03:02 10/28/17 03:02 Diabetes panel 10/28/17 Range/Units 03:02 Sodium 139 (136-145) mEq/L Potassium 4.0 (3.5-5.1) mEq/L Chloride 110 H (98-107) mEq/L Carbon Dioxide 25 (23-29) mEq/L BUN 17 (8-23) mg/dL Creatinine 1.10 (0.70-1.30) mg/dL Glucose 93 (70-105) mg/dL Calcium 7.6 L (8.6-10.3) mg/dL Calcium panel 10/28/17 Range/Units 03:02 Calcium 7.6 L (8.6-10.3) mg/dL Pituitary panel 10/28/17 Range/Units 03:02 Sodium 139 (136-145) mEq/L Potassium 4.0 (3.5-5.1) mEq/L Chloride 110 H (98-107) mEq/L Carbon Dioxide 25 (23-29) mEq/L BUN 17 (8-23) mg/dL Creatinine 1.10 (0.70-1.30) mg/dL Glucose 93 (70-105) mg/dL Calcium 7.6 L (8.6-10.3) mg/dL Adrenal panel 10/28/17 Range/Units 03:02 Sodium 139 (136-145) mEq/L Potassium 4.0 (3.5-5.1) mEq/L Chloride 110 H (98-107) mEq/L Carbon Dioxide 25 (23-29) mEq/L BUN 17 (8-23) mg/dL Creatinine 1.10 (0.70-1.30) mg/dL Glucose 93 (70-105) mg/dL Calcium 7.6 L (8.6-10.3) mg/dL - Attending Attestation I examined this patient and my medical decision-making was reviewed with the Resident Physician. I agree with the documented findings, disposition and treatment plan as described except to the extent set forth below. The patient is seen and evaluated on morning rounds with the resident and the clinical nurse practitioner. He is sitting comfortably at the bedside. His pain control is excellent. He is afebrile and his pain is much improved. We will await return of his bowel function. Robert Velazquez MD FACS
[2017-10-28] MEDS: Pantoprazole 40 MG VIAL IVP SCH (09:00)
[2017-10-28] MEDS: Ondansetron 4 MG/2 ML VIAL IVP PRN ×3 (09:57→21:42)
[2017-10-28] MEDS: MORPHINE SUL Oral CONC 10 MG/0.5 ML ORAL.SYG PO PRN ×2 (16:55→21:42)
[2017-10-29] MEDS: 0.9 % Sodium Chloride 1,000 ML IVC SCH ×3 (00:45→23:41)
[2017-10-29] MEDS: Ondansetron 4 MG/2 ML VIAL IVP PRN ×2 (01:56→10:11)
[2017-10-29 02:55] LABS: Basophils % 0.4 %; Eosinophils # 0.4 K/mcL (0.0-0.6); Hemoglobin 8.6 g/dL (12.9-16.9); Immature Granulocytes % 1.2 % (0-4); Lymphocytes % 11.4 %; Mean Corpuscular HGB Conc 31.9 g/dL (31.6-35.5); Mean Corpuscular Hemoglobin 29.2 pg (28.0-33.3); Mean Corpuscular Volume 91.5 fL (83.0-100.0); Mean Platelet Volume 10.1 fL (9.4-12.4); Monocytes # 0.6 K/mcL (0.0-1.3); Monocytes % 7.6 %; Neutrophils # 6.3 K/mcL (1.6-8.9); Platelet Count 178 K/mcL (140-400); Red Blood Count 2.95 M/mcL (4.19-5.50); Red Cell Distribution Width 14.6 % (11.5-14.5); Segmented Neutrophils % 74.4 %
[2017-10-29] MEDS: MORPHINE SUL Oral CONC 10 MG/0.5 ML ORAL.SYG PO PRN ×2 (04:07→10:11)
[2017-10-29] MEDS: *HR* Promethazine 25 MG/ML VIAL IVP PRN ×2 (04:29→23:29)
[2017-10-29] MEDS: Ibuprofen 800 MG TABLET PO PRN ×2 (08:24→23:27)
[2017-10-29] MEDS: Pantoprazole 40 MG VIAL IVP SCH (08:25)
--- NOTE | 2017-10-29 12:53 | General Surgery Progress Note ---
<Nelly Rico - Last Filed: 10/29/17 12:55> Date of Encounter: 10/29/17 Time of Encounter: 12:50 - Assessment and Plan (1) Cecum mass Current Visit: Yes Status: Acute POD #3 diagnostic laparoscopy with closure of colotomy with Dr. Marrero POD #4 robotic assisted right hemicolectomy with Dr. Marrero Pathology pending CEA- 2.6 NPO while awaiting return of bowel function. Will consider advancement to clear liquid diet, once pt confirms passage of flatus IV fluids Supportive care and pain control IS every 1 hour while awake PPI therapy daily Out of bed to chair and ambulate hallways TID with assistance Daily wound care (2) BPH (benign prostatic hyperplasia) Current Visit: Yes Status: Chronic Hx of BPH, known risk factor for postoperative urinary retention Pt was strict monitoring of I/O with martinez given risk factors for postop UAR Last documented 24-hr urinary output: 0.7 cc/kg/hr (1600 mL b/w 10/27/17 12 AM - 10/28/17 12 AM), within normal output range for adult patients Given UOP WNL, d/c Martinez. Continue monitoring I/O Continue home medication: Tamsulosin 0.4 mg PO daily, Finasteride Qualifiers: Lower urinary tract symptom presence: symptoms absent Qualified Code(s): N40.0 - Benign prostatic hyperplasia without lower urinary tract symptoms (3) Postoperative anemia due to acute blood loss Current Visit: Yes Status: Acute Hgb stable. Continue to trend (4) DVT prophylaxis Current Visit: Yes Status: Acute Hold SQ heparin due to concern post-operative bleeding EPCDs to bilateral lower extremities for DVT prophylaxis Ambulate hallways TID with assistance Subjective Patient reports: no flatus, no bowel movement, afebrile Objective Physical exam performed by Robert Velazquez MD and dictated as stated below: Vital Signs - Last 8 Hours Temp Pulse Resp BP Pulse Ox 10/29/17 06:51 98.6 F 96 16 126/71 96 Intake and Output 10/28/17 10/29/17 10/29/17 23:59 07:59 15:59 Intake Total 100 / 100 1000 / 1000 1000 / 1000 Output Total 775 / 775 400 / 400 Balance -675 / -675 600 / 600 1000 / 1000 Intake: IV Fluids 100 / 100 1000 / 1000 1000 / 1000 0.9 % Sodium Chloride 1,000 ML 1000 / 1000 1000 / 1000 @ 100 mls/hr IVC .Q10H JORDAN Rx#: [id number] Ofirmev 1,000 mg/100 ml 1,000 100 / 100 mg In 100 ml @ 400 mls/hr IVPB Q6H JORDAN Rx#:[id number] Output: Catheter 700 / 700 350 / 350 Wound Drainage 75 / 75 50 / 50 Left Lower Abdomen 75 / 75 50 / 50 Other: Weight 90.2 kg Blood Glucose* 86 88 Patient Weight 10/29/17 23:59 Weight 90.2 kg - General physical appearance no distress - Respiratory normal expansion, clear to auscultation - Cardiovascular Cardiovascular exam: Present: RRR - Abdomen Abdomen: Present: bowel sounds present - Psychiatric speech is normal - Labs 10/29/17 02:47 10/28/17 03:02 - VTE Documentation of Mechanical Device: Intermittent pneumatic compression device Consult Discharge Plan - Plan [facility]errals: [facility] [Primary Care Provider] - <Robert Velazquez - Last Filed: 10/31/17 08:36> Date of Encounter: 10/29/17 Objective Vital Signs - Last 8 Hours Temp Pulse Resp BP Pulse Ox 10/31/17 07:50 97 10/31/17 06:38 98.8 F 84 14 120/71 97 10/31/17 03:52 99.0 F 81 17 114/67 93 Intake and Output 10/30/17 10/31/17 10/31/17 23:59 07:59 15:59 Intake Total 480 / 480 60 / 60 Output Total 60 / 60 20 / 20 Balance 420 / 420 40 / 40 Intake: Oral 480 / 480 60 / 60 Output: Urine 0 / 0 0 / 0 Wound Drainage 60 / 60 20 / 20 Left Lower Abdomen 60 / 60 20 / 20 Other: Meal Dinner Percent of Meal Consumed 50% Stool Size Moderate Stool Consistency liquid Stool Color Brown # Voids 2 - Labs 10/31/17 06:14 10/31/17 06:14 Diabetes panel 10/31/17 Range/Units 06:14 Sodium 140 (136-145) mEq/L Potassium 3.4 L (3.5-5.1) mEq/L Chloride 108 H (98-107) mEq/L Carbon Dioxide 26 (23-29) mEq/L BUN 14 (8-23) mg/dL Creatinine 0.76 (0.70-1.30) mg/dL Glucose 113 H (70-105) mg/dL Calcium 7.9 L (8.6-10.3) mg/dL Calcium panel 10/31/17 Range/Units 06:14 Calcium 7.9 L (8.6-10.3) mg/dL Pituitary panel 10/31/17 Range/Units 06:14 Sodium 140 (136-145) mEq/L Potassium 3.4 L (3.5-5.1) mEq/L Chloride 108 H (98-107) mEq/L Carbon Dioxide 26 (23-29) mEq/L BUN 14 (8-23) mg/dL Creatinine 0.76 (0.70-1.30) mg/dL Glucose 113 H (70-105) mg/dL Calcium 7.9 L (8.6-10.3) mg/dL Adrenal panel 10/31/17 Range/Units 06:14 Sodium 140 (136-145) mEq/L Potassium 3.4 L (3.5-5.1) mEq/L Chloride 108 H (98-107) mEq/L Carbon Dioxide 26 (23-29) mEq/L BUN 14 (8-23) mg/dL Creatinine 0.76 (0.70-1.30) mg/dL Glucose 113 H (70-105) mg/dL Calcium 7.9 L (8.6-10.3) mg/dL - Attending Attestation I examined this patient and my medical decision-making was reviewed with the Resident Physician. I agree with the documented findings, disposition and treatment plan as described except to the extent set forth below. The patient was seen and evaluated on morning rounds with a resting. He is sitting comfortably at the bedside. He still has not had a bowel movement. We will maintain his current diet and await bowel function. Robert Velazquez MD FACS
[2017-10-29] MEDS ORDERED: *HR* FentaNYL PATCH 12 MCG PATCH TD SCH (14:15)
[2017-10-29] MEDS: Finasteride 5 MG TABLET PO SCH (15:24)
[2017-10-30 04:36] LABS: Basophils % 0.4 %; Eosinophils # 0.4 K/mcL (0.0-0.6); Hematocrit 24.6 % (37.5-50.1); Hemoglobin 7.8 g/dL (12.9-16.9); Immature Granulocytes % 1.7 % (0-4); Lymphocytes # 0.8 K/mcL (0.6-4.6); Lymphocytes % 14.1 %; Mean Corpuscular HGB Conc 31.7 g/dL (31.6-35.5); Mean Corpuscular Hemoglobin 28.8 pg (28.0-33.3); Mean Corpuscular Volume 90.8 fL (83.0-100.0); Mean Platelet Volume 10.2 fL (9.4-12.4); Monocytes # 0.6 K/mcL (0.0-1.3); Monocytes % 11.5 %; Neutrophils # 3.5 K/mcL (1.6-8.9); Nucleated Red Blood Cells 0.4 /100 WBC (0); Platelet Count 213 K/mcL (140-400); Red Blood Count 2.71 M/mcL (4.19-5.50); Red Cell Distribution Width 14.6 % (11.5-14.5); Segmented Neutrophils % 65.3 %
[2017-10-30] MEDS: Finasteride 5 MG TABLET PO SCH (08:27)
[2017-10-30] MEDS: Pantoprazole 40 MG VIAL IVP SCH (08:28)
[2017-10-30] MEDS: Ondansetron 4 MG/2 ML VIAL IVP PRN (08:36)
--- NOTE | 2017-10-30 10:26 | General Surgery Progress Note ---
Date of Encounter: 10/30/17 Time of Encounter: 10:00 - Assessment and Plan (1) Cecum mass Current Visit: Yes Status: Acute POD #5 robotic assisted right hemicolectomy with Dr. Marrero POD #4 diagnostic laparoscopy with closure of colotomy with Dr. Marrero Pathology pending CEA- 2.6 Clear liquid diet with protein supplements Saline lock Supportive care and pain control IS every 1 hour while awake PPI therapy daily Out of bed to chair and ambulate hallways TID with assistance Continue DARWIN drain Daily wound care (2) Postoperative anemia due to acute blood loss Current Visit: Yes Status: Acute Stable Repeat am labs (3) BPH (benign prostatic hyperplasia) Current Visit: Yes Status: Chronic Qualifiers: Lower urinary tract symptom presence: symptoms absent Qualified Code(s): N40.0 - Benign prostatic hyperplasia without lower urinary tract symptoms (4) DVT prophylaxis Current Visit: Yes Status: Acute Resume SQ heparin 5,000 units SQ twice daily for DVT prophylaxis EPCDs to bilateral lower extremities for DVT prophylaxis Ambulate hallways TID with assistance Subjective Patient reports: no new complaints, feels better, still having pain, pain is less, tolerating liquids well, voiding w/o difficulty, flatus, no bowel movement , nausea (occasional, controlled with antiemetics), afebrile Objective Vital Signs - Last 8 Hours Temp Pulse Resp BP Pulse Ox 10/30/17 08:44 100 10/30/17 07:44 98.4 F 75 17 117/73 100 10/30/17 03:19 98.1 F 83 16 116/65 97 Intake and Output 10/29/17 10/30/17 10/30/17 23:59 07:59 15:59 Intake Total 1000 / 1000 0 / 0 Output Total 750 / 750 25 / 25 25 / 25 Balance 250 / 250 -25 / -25 -25 / -25 Intake: IV Fluids 1000 / 1000 0.9 % Sodium Chloride 1,000 ML 1000 / 1000 @ 100 mls/hr IVC .Q10H JORDAN Rx#: [id number] Oral 0 / 0 Output: Urine 650 / 650 0 / 0 Wound Drainage 100 / 100 25 / 25 25 / 25 Left Lower Abdomen 100 / 100 25 / 25 25 / 25 Other: Blood Glucose* 100 106 - General physical appearance well developed, well nourished, no distress, moderate pain (improving) - Eyes normal ocular movement - ENT normal mucosa, atraumatic, normocephalic - Neck Neck exam: trachea midline - Respiratory normal respiratory effort, clear to auscultation - Cardiovascular Cardiovascular exam: Present: RRR - Abdomen Abdomen: Present: bowel sounds present (tympanic), soft, distended, tender ( expected post-operative tenderness), wound (DARWIN drain with serousang. drainage noted (150ml noted since midnight)) - Incision Incision: Present: intact, open (Midline lap incision with packing (small amount of serousang. drainage noted)) - Neurologic CN 2-12 grossly intact - Musculoskeletal normal gait, normal posture - Psychiatric oriented to time, oriented to person, oriented to place, speech is normal, memory intact - Labs 10/30/17 03:33 10/28/17 03:02 - VTE Documentation of Mechanical Device: Intermittent pneumatic compression device Consult Discharge Plan - Plan [facility]errals: [facility] [Primary Care Provider] - - Attending Attestation For this encounter, I have reviewed the CONCRETE PIPE MAKER or PA documentation, treatment plan, and medical decision making; and I have had face to face time with this patient.
[2017-10-30] MEDS: Ibuprofen 800 MG TABLET PO PRN ×2 (10:35→17:51)
[2017-10-30] MEDS: *HR* Heparin 5,000 UNIT/ML VIAL SQ SCH ×2 (11:47→17:51)
[2017-10-30] MEDS: *HR* Promethazine 25 MG/ML VIAL IVP PRN (20:37)
[2017-10-30] MEDS: GuaiFENesin/Dextromethorphan TABLET PO SCH (20:38)
[2017-10-31] MEDS: Ondansetron 4 MG/2 ML VIAL IVP PRN ×3 (04:54→19:53)
[2017-10-31] MEDS: *HR* Heparin 5,000 UNIT/ML VIAL SQ SCH ×2 (05:00→17:05)
[2017-10-31] MEDS: GuaiFENesin/Dextromethorphan TABLET PO SCH ×2 (07:18→21:06)
[2017-10-31] MEDS: Finasteride 5 MG TABLET PO SCH (07:18)
[2017-10-31] MEDS: Pantoprazole 40 MG VIAL IVP SCH (07:18)
[2017-10-31 08:07] LABS: BUN/Creatinine Ratio 18 (6-26); Blood Urea Nitrogen 14 mg/dL (8-23); Calcium 7.9 mg/dL (8.6-10.3); Carbon Dioxide 26 mEq/L (23-29); Chloride 108 mEq/L (98-107); Glucose 113 mg/dL (70-105); Osmolality,Calculated 291 (280-300); Potassium 3.4 mEq/L (3.5-5.1); Sodium 140 mEq/L (136-145); eGFR For African Americans > 60 (> 60); eGFR For Non-African Americans > 60 (> 60)
[2017-10-31 08:12] LABS: Basophils % 0.6 %; Eosinophils # 0.4 K/mcL (0.0-0.6); Eosinophils % 6.7 %; Hematocrit 24.3 % (37.5-50.1); Immature Granulocytes % 3.4 % (0-4); Lymphocytes # 0.8 K/mcL (0.6-4.6); Lymphocytes % 15.3 %; Mean Corpuscular HGB Conc 32.9 g/dL (31.6-35.5); Mean Corpuscular Hemoglobin 28.8 pg (28.0-33.3); Mean Corpuscular Volume 87.4 fL (83.0-100.0); Mean Platelet Volume 9.8 fL (9.4-12.4); Monocytes # 0.7 K/mcL (0.0-1.3); Neutrophils # 3.3 K/mcL (1.6-8.9); Platelet Count 248 K/mcL (140-400); Red Blood Count 2.78 M/mcL (4.19-5.50); Red Cell Distribution Width 14.6 % (11.5-14.5)
[2017-10-31] MEDS: *HR* Promethazine 25 MG/ML VIAL IVP PRN ×2 (09:22→17:05)
--- NOTE | 2017-10-31 09:35 | Discharge Summary ---
<Tete Timmons - Last Filed: 10/31/17 09:27> Date of Encounter: 10/31/17 Time of Encounter: 09:15 - Discharge Diagnosis (1) Cecum mass Priority: Primary Status: Acute (2) Postoperative anemia due to acute blood loss Priority: Secondary Status: Acute (3) BPH (benign prostatic hyperplasia) Priority: Secondary Status: Chronic Qualifiers: Lower urinary tract symptom presence: symptoms absent Qualified Code(s): N40.0 - Benign prostatic hyperplasia without lower urinary tract symptoms - Discharge Medications Prescriptions: Ondansetron ODT [Zofran ODT] 4 mg SL Q6HR #30 tab.rapdis Ibuprofen [Motrin] 800 mg PO Q8HR PRN #40 tablet PRN Reason: Mild Pain Docusate Sodium [Colace] 100 mg PO BID PRN #30 capsule PRN Reason: Constipation OxyCODONE Immed Rel [Roxicodone 5 MG] 5 mg PO ONCE PRN 7 Days #30 tablet PRN Reason: moderate pain Home Medications: EPINEPHrine [Epipen] 0.3 mg IM ONCE PRN 10/25/17 [History] Finasteride [Proscar] 5 mg PO DAILY 10/25/17 [History] Omeprazole [PriLOSEC] 20 mg PO DAILY 10/25/17 [History] Tamsulosin [Flomax] 0.4 mg PO DAILY 10/25/17 [History] valACYclovir [Valtrex] 2 tab PO Q12H 10/25/17 [History] Ibuprofen [Motrin] 800 mg PO Q8HR PRN #40 tablet 10/31/17 [Rx] Ondansetron ODT [Zofran ODT] 4 mg SL Q6HR #30 tab.rapdis 10/31/17 [Rx] OxyCODONE Immed Rel [Roxicodone 5 MG] 5 mg PO ONCE PRN 7 Days #30 tablet [Rx] Docusate Sodium [Colace] 100 mg PO BID PRN #30 capsule 11/03/17 [Rx] Allergies/Adverse Reactions: 3 Allergy/AdvReac Type Severity Reaction Status Date / Time Hydromorphone [From Dilaudid] Allergy Unresponsiv Verified 10/25/17 08:55 e meperidine [From Demerol] Allergy Hives Verified 10/25/17 08:55 General Surgery Exam Initial Vital Signs Temp Pulse Resp BP Pulse Ox 97.5 F L 102 18 166/84 100 10/25/17 08:52 10/25/17 08:52 10/25/17 08:52 10/25/17 08:52 10/25/17 08:52 - General physical appearance well developed, well nourished, no distress - Eyes PERRL, normal ocular movement - ENT normal mucosa, atraumatic, normocephalic - Neck trachea midline - Respiratory normal respiratory effort, clear to auscultation - Cardiovascular Cardiovascular exam: Present: RRR - Abdomen Abdomen general surgery: Present: bowel sounds present, soft, tender (expected post-operative tenderness), wound (DARWIN drain to bulb suction with serous drainage noted; Midline lap incision with scant amount of serous drainage noted. ) - Incision Incision: Present: open (Midline lap incision with scant amount of serous drainage noted) - Integumentary Integumentary general surgery: Present: warm and dry - Neurologic Present: CN 2-12 grossly intact - Musculoskeletal Present: normal gait, normal posture - Psychiatric Psychiatric general surgery: Present: appropriate, oriented to person, oriented to place, oriented to time, speech is normal, memory intact Date of admission: 10/25/17 13:37 [facility] care physician[facility] Discharging clinician: Jl Marrero (Rima Timmons) Anticipated date of discharge: 10/31/17 - Patient Status Disposition: Home Health Service Condition: Good Functional capacity at discharge: independent ambulation Overall status at discharge: patient is progressing back to baseline - Discharge Instructions Instructions: Colectomy (DC) Follow Up With: Tete Timmons CNP [Advanced Practice Nurse] - 11/09/17 9:00 am (surgery follow-up; drain check) [place],PCP [Primary Care Provider] - (1-2 weeks hospital follow-up) Alejandro Tyler MD [Partnered Physician] - (as directed per oncology;) Additional Instructions: Surgery instructions: #1 May shower, no tub bath X 2 weeks #2 Wash incisions with soap and water and pat dry daily; may leave open to air #3 No lifting/pushing/pulling greater than 20 lb. for 4 weeks #4 No driving until off narcotics and able to safely react in the care #5 May climb stairs #6 Incentive Spirometer every 1 hour while awake DARWIN drain- cleanse around drain with soap and water in the shower daily, pat dry. Suspend drain so that there is no tension on the drain. Empty drain 2-3 times per day and as needed if full. Record outputs on drain record (mLs) and bring to follow-up appointment on 11/09/17 with Tete Timmons CNP Wound care- Cleanse Midline with soap and water and pat dry daily, pack open areas with 1/4 inch plain gauze, cover with dry 4X4 gauze and tape to secure daily. - Diet and Activity Activity: other (See additional instructions above) Diet: advance to your usual diet - Hospital Course Hospital course: Mr. Sierra is a 67 year old male who presented to the hospital with complaints of increasing abdominal pain for the past 3 months. He had a CT scan complete which was concerning for a cecal mass. He was admitted to the hospital and supportive measures were initiated. His CEA level was 2.6. He was taken to the operating room for a Robotic assisted right hemicolectomy with Dr. Marrero. On POD #1 the patient developed acute onset of severe abdominal pain with tachycardia. A CT scan was complete without contrast and there were concerns for hematoma. The patient was taken back to the operating room urgently per Dr. Marrero for a diagnostic laparoscopy. Dr. Marrero repaired a colotomy which was identified with exploration. He did have a surgical drain placed. The patient remained on bowel rest while awaiting return of bowel function. He was supported with IV fluids and medications for pain control. With return of bowel function, the patient was started on a clear liquid diet. He was advanced to a soft diet as tolerated. He is tolerating a soft diet without difficulty. He is having bowel movements and passing flatus. His vital signs are stable and he has remained afebrile. His post-operative pain is well controlled. He is voiding and ambulating without difficulty. Pathology will be reviewed with the patient when a final report is complete. We will begin discharge planning to home and plan for outpatient follow-up in the next 7-10 days for a drain check. Will arrange for outpatient follow-up with oncology in the next 2 weeks. - Time Spent with Patient Total time spent providing and/or coordinating discharge services: Less than 30 minutes Labs on day of discharge: Labs from last 24 hours 10/31/17 10/31/1718 06:14 06:14 05:36 WBC 5.4 RBC 2.78 L Hgb 8.0 L Hct 24.3 L MCV 87.4 MCH 28.8 MCHC 32.9 RDW 14.6 H Plt Count 248 MPV 9.8 Immature Gran % 3.4 Seg Neutrophils % 61.0 Lymphocytes % 15.3 Monocytes % 13.0 Eosinophils % 6.7 Basophils % 0.6 Neutrophils # 3.3 Lymphocytes # 0.8 Monocytes # 0.7 Eosinophils # 0.4 Basophils # 0.0 Sodium 140 Potassium 3.4 L Chloride 108 H Carbon Dioxide 26 BUN 14 Creatinine 0.76 Est GFR ( Amer) > 60 Est GFR (Non-Af Amer) > 60 BUN/Creatinine Ratio 18 Glucose 113 H POC Glucose 106 H Calculated Osmolality 291 Calcium 7.9 L - Impressions ITS Impressions Abdomen/Pelvis CT 10/26/17 15:15 IMPRESSION: 1. There is pneumoperitoneum and hemoperitoneum, likely related to the recent surgery. The largest collection of blood is noted along the right side of the mesentery measuring approximately 12 x 6 x 3 cm. 2. Postsurgical changes are noted from a right hemicolectomy performed yesterday. 3. Fatty liver. 4. Small bilateral pleural effusions with associated atelectasis in the lung bases. 5. Hiatal hernia. Results were discussed with Dr. Herron at 4:02 p.m. on 10/26/2017. D/ / 10/26/2017 16:19:40 Chadd Sanchez MD / [facility] Interpreting Provider: Chadd Sanchez MD - Attending Attestation For this encounter, I have reviewed the ENROLLMENT ADVISOR or PA documentation, treatment plan, and medical decision making; and I have had face to face time with this patient. <Phuong Meraz - Last Filed: 11/03/17 13:41> Date of Encounter: 11/03/17 Time of Encounter: 12:37 - Discharge Diagnosis (1) Cecum mass Priority: Primary Status: Acute (2) BPH (benign prostatic hyperplasia) Priority: Secondary Status: Chronic Qualifiers: Lower urinary tract symptom presence: symptoms absent Qualified Code(s): N40.0 - Benign prostatic hyperplasia without lower urinary tract symptoms (3) DVT prophylaxis Priority: Secondary Status: Acute (4) Nausea Priority: Secondary Status: Acute (5) Ileus, postoperative Priority: Secondary Status: Acute General Surgery Exam Initial Vital Signs Temp Pulse Resp BP Pulse Ox 97.5 F L 102 18 166/84 100 10/25/17 08:52 10/25/17 08:52 10/25/17 08:52 10/25/17 08:52 10/25/17 08:52 - General physical appearance well developed, well nourished, no distress - ENT normal mucosa, no congestion, atraumatic, normocephalic - Neck trachea midline, no venous distension - Respiratory normal expansion, normal respiratory effort, clear to auscultation - Cardiovascular Cardiovascular exam: Present: RRR, 15, 16 - Abdomen Abdomen general surgery: Present: bowel sounds present, soft, tender, wound - Incision Incision: Present: open - Integumentary Integumentary general surgery: Present: warm and dry, no abnormal pigmentation - Neurologic Present: CN 2-12 grossly intact, normal coordination, normal sensation - Musculoskeletal Present: normal gait, normal posture - Psychiatric Psychiatric general surgery: Present: A&Ox3, appropriate, oriented to person, oriented to place, oriented to time, speech is normal, memory intact Date of admission: 10/25/17 13:37 [facility] care physician: [facility] Consults: 11/01/17 11:30 Consult to Oncology [CONS] Routine Consulting Provider: [facility] Reason for Consult: New diagnosis colon cancer Time Notified: 11:30 Call Completed: Yes Anticipated date of discharge: 11/03/17 - Patient Status Functional capacity at discharge: independent ambulation Overall status at discharge: patient is progressing back to baseline - Diet and Activity Activity: increase activity as tolerated, other Diet: advance to your usual diet - Hospital Course Hospital course: Update to d/c summary as posted above. Pathology has been reviewed with patient. He met with Dr. Tyler ad will he will follow-up with Dr. Tyler next week for a PET/CT scanned for staging following this appointment. He was transfused Tete for iron deficiency anemia. 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 We will begin discharge planning to home with a follow-up office on 11/09/2017 at 9 AM for a drain check. - Time Spent with Patient Total time spent providing and/or coordinating discharge services: Less than 30 minutes Labs on day of discharge: Labs from last 24 hours 11/03/17 11/03/17 04:21 04:21 WBC 7.9 RBC 2.81 L Hgb 8.0 L Hct 25.0 L MCV 89.0 MCH 28.5 MCHC 32.0 RDW 14.7 H Plt Count 334 MPV 9.6 Seg Neutrophils % 72.0 Lymphocytes % 18.0 Monocytes % 4.0 Eosinophils % 4.0 Myelocytes % 2.0 H Neutrophils # 5.7 Lymphocytes # 1.4 Monocytes # 0.3 Eosinophils # 0.3 Nucleated RBCs/100 WBC 0.3 H Platelet Estimate Normal Sodium 139 Potassium 3.3 L Chloride 106 Carbon Dioxide 27 BUN 14 Creatinine 0.84 Est GFR ( Amer) > 60 Est GFR (Non-Af Amer) > 60 BUN/Creatinine Ratio 17 Glucose 108 H Calculated Osmolality 289 Calcium 7.7 L Phosphorus 2.7 Magnesium 2.0 - Impressions ITS Impressions Abdomen/Pelvis CT 10/26/17 15:15 IMPRESSION: 1. There is pneumoperitoneum and hemoperitoneum, likely related to the recent surgery. The largest collection of blood is noted along the right side of the mesentery measuring approximately 12 x 6 x 3 cm. 2. Postsurgical changes are noted from a right hemicolectomy performed yesterday. 3. Fatty liver. 4. Small bilateral pleural effusions with associated atelectasis in the lung bases. 5. Hiatal hernia. Results were discussed with Dr. Herron at 4:02 p.m. on 10/26/2017. D/ / 10/26/2017 16:19:40 Chadd Sanchez MD / [facility] Interpreting Provider: Chadd Sanchez MD Chest/Abdomen X-ray 10/31/17 15:44 IMPRESSION: 1. Dilated, air-filled loops of proximal to mid small bowel, concerning for a mid small bowel obstruction. A postoperative ileus is also a consideration. 2. Low lung volumes with left basilar atelectasis and small pleural effusions. D/ / Myles King MD / Myles King MD Interpreting Provider: Myles King MD Abdomen X-Ray 11/01/17 00:00 IMPRESSION: Oral contrast is within the stomach and proximal small bowel. Air-fluid levels within multiple bowel loops. Findings could represent ileus or bowel obstruction. Recommend continued radiographic follow-up. D/ / Chalo Darby MD / Chalo Darby MD Interpreting Provider: Chalo Darby MD Abdomen X-Ray 11/02/17 07:00 IMPRESSION: Contrast is now visualized in the colon. There is however an increase in distention of small bowel loops in the left side of the abdomen when compared to the prior study. This suggest ileus versus partial small bowel obstruction. Continued follow-up suggested. D/ / 11/02/2017 08:34:00 Ivelisse Jenkins MD / Adelita Barajas Interpreting Provider: Ivelisse Jenkins MD
--- NOTE | 2017-10-31 15:47 | General Surgery Progress Note ---
Date of Encounter: 10/31/17 Time of Encounter: 09:30 - Assessment and Plan (1) Cecum mass Current Visit: Yes Status: Acute POD #6 robotic assisted right hemicolectomy with Dr. Marrero POD #5 diagnostic laparoscopy with closure of colotomy with Dr. Marrero Pathology pending CEA- 2.6 Soft diet with protein supplements- patient nauseated and bloating Decrease to full liquid diet Supportive care and pain control IS every 1 hour while awake PPI therapy daily Out of bed to chair and ambulate hallways TID with assistance Continue DARWIN drain Daily wound care (2) Postoperative anemia due to acute blood loss Current Visit: Yes Status: Acute Stable (3) BPH (benign prostatic hyperplasia) Current Visit: Yes Status: Chronic Qualifiers: Lower urinary tract symptom presence: symptoms absent Qualified Code(s): N40.0 - Benign prostatic hyperplasia without lower urinary tract symptoms (4) Nausea Current Visit: Yes Status: Acute Back patient down to full liquids with protein supplements Check Acute abdominal series (5) DVT prophylaxis Current Visit: Yes Status: Acute Continue SQ heparin 5,000 units SQ twice daily for DVT prophylaxis EPCDs to bilateral lower extremities for DVT prophylaxis Ambulate hallways TID with assistance Subjective Patient reports: still having pain, pain is less, voiding w/o difficulty, flatus , bowel movement, diarrhea, nausea (with bloating), afebrile Objective Vital Signs - Last 8 Hours Temp Pulse Resp BP Pulse Ox 10/31/17 14:05 99.0 F 82 18 124/74 99 10/31/17 10:50 98.4 F 83 14 134/79 99 10/31/17 07:50 97 Intake and Output 10/30/17 10/31/17 10/31/17 23:59 07:59 15:59 Intake Total 480 / 480 60 / 60 540 / 540 Output Total 60 20 226 / 226 Balance 420 / 420 40 / 40 314 / 314 Intake: Oral 480 / 480 60 / 60 540 / 540 Output: Urine 0 / 0 0 / 0 200 / 200 Wound Drainage Left Lower Abdomen 60 Other: Meal Dinner ice chips Percent of Meal Consumed 50% 100% Stool Size Moderate Moderate Stool Consistency liquid liquid Stool Color Brown Brown # Voids 2 2 - General physical appearance well developed, well nourished, moderate distress - Eyes normal ocular movement - ENT normal mucosa, atraumatic, normocephalic - Neck Neck exam: trachea midline - Respiratory normal respiratory effort, clear to auscultation - Cardiovascular Cardiovascular exam: Present: RRR - Abdomen Abdomen: Present: bowel sounds present, soft, distended, tender (expected post- operative tenderness), wound (DARWIN drain to bulb suction with serous drainage noted) - Incision Incision: Present: open (Midline lap incision with scant amount of seorus drainage noted, no surrounding erythema or induration) - Integumentary no rash, no growths, no abnormal pigmentation - Neurologic CN 2-12 grossly intact - Musculoskeletal normal gait, normal posture - Psychiatric oriented to time, oriented to person, oriented to place, speech is normal, memory intact - Labs 10/31/17 06:14 10/31/17 06:14 Diabetes panel 10/31/17 Range/Units 06:14 Sodium 140 (136-145) mEq/L Potassium 3.4 L (3.5-5.1) mEq/L Chloride 108 H (98-107) mEq/L Carbon Dioxide 26 (23-29) mEq/L BUN 14 (8-23) mg/dL Creatinine 0.76 (0.70-1.30) mg/dL Glucose 113 H (70-105) mg/dL Calcium 7.9 L (8.6-10.3) mg/dL Calcium panel 10/31/17 Range/Units 06:14 Calcium 7.9 L (8.6-10.3) mg/dL Pituitary panel 10/31/17 Range/Units 06:14 Sodium 140 (136-145) mEq/L Potassium 3.4 L (3.5-5.1) mEq/L Chloride 108 H (98-107) mEq/L Carbon Dioxide 26 (23-29) mEq/L BUN 14 (8-23) mg/dL Creatinine 0.76 (0.70-1.30) mg/dL Glucose 113 H (70-105) mg/dL Calcium 7.9 L (8.6-10.3) mg/dL Adrenal panel 10/31/17 Range/Units 06:14 Sodium 140 (136-145) mEq/L Potassium 3.4 L (3.5-5.1) mEq/L Chloride 108 H (98-107) mEq/L Carbon Dioxide 26 (23-29) mEq/L BUN 14 (8-23) mg/dL Creatinine 0.76 (0.70-1.30) mg/dL Glucose 113 H (70-105) mg/dL Calcium 7.9 L (8.6-10.3) mg/dL - VTE Documentation of Mechanical Device: Intermittent pneumatic compression device Consult Discharge Plan - Plan Additional Instructions: Surgery instructions: #1 May shower, no tub bath X 2 weeks #2 Wash incisions with soap and water and pat dry daily; may leave open to air #3 No lifting/pushing/pulling greater than 20 lb. for 4 weeks #4 No driving until off narcotics and able to safely react in the care #5 May climb stairs #6 Incentive Spirometer every 1 hour while awake DARWIN drain- cleanse around drain with soap and water in the shower daily, pat dry. Suspend drain so that there is no tension on the drain. Empty drain 2-3 times per day and as needed if full. Record outputs on drain record (mLs) and bring to follow-up appointment on 11/09/17 with Tete Timmons CNP Wound care- Cleanse Midline with soap and water and pat dry daily, pack open areas with 1/4 inch plain gauze, cover with dry 4X4 gauze and tape to secure daily. Referrals: Tete Timmons CNP [Advanced Practice Nurse] - 11/09/17 9:00 am (surgery follow-up; drain check) [facility] - (1-2 weeks hospital follow-up) Prescriptions: Ondansetron ODT [Zofran ODT] 4 mg SL Q6HR #30 tab.rapdis Ibuprofen [Motrin] 800 mg PO Q8HR PRN #40 tablet PRN Reason: Mild Pain OxyCODONE Immed Rel [Roxicodone 5 MG] 5 mg PO ONCE PRN 7 Days #30 tablet PRN Reason: moderate pain - Attending Attestation For this encounter, I have reviewed the REGISTERED CLINICAL DIETITIAN or PA documentation, treatment plan, and medical decision making; and I have had face to face time with this patient.
[2017-10-31] MEDS: MORPHINE SUL Oral CONC 10 MG/0.5 ML ORAL.SYG PO PRN (21:01)
[2017-11-01] MEDS: Ondansetron 4 MG/2 ML VIAL IVP PRN ×4 (05:37→20:22)
[2017-11-01] MEDS: *HR* Heparin 5,000 UNIT/ML VIAL SQ SCH ×2 (05:38→19:29)
[2017-11-01] MEDS: GuaiFENesin/Dextromethorphan TABLET PO SCH ×2 (08:32→20:22)
[2017-11-01] MEDS: Finasteride 5 MG TABLET PO SCH (08:32)
--- NOTE | 2017-11-01 11:47 | General Surgery Progress Note ---
Date of Encounter: 11/01/17 Time of Encounter: 11:30 - Assessment and Plan (1) Cecum mass Current Visit: Yes Status: Acute POD #7 robotic assisted right hemicolectomy with Dr. Marrero POD #6 diagnostic laparoscopy with closure of colotomy with Dr. Marrero Pathology- Invasive signet ring adenocarcinoma. Sixteen of eighteen pericolonic lymph nodes positive for metastatic carcinoma ( 16/18). See tumor summary above and comment below. Comment: Carcinoma within a lymph node is less than 1 mm from the radial margin. There is limited outcome data for cases with intranodal tumor within 1 mm of radial resection margin, but follow-up based on a small number of patients suggests that local recurrence in these tumors may be similar to those with negative margin. Oncology consulted- Dr. Tyler notified CEA- 2.6 NPO except ice chips due to suspected ileus IV fluids- 75ml/hour Supportive care and pain control IS every 1 hour while awake PPI therapy daily Out of bed to chair and ambulate hallways TID with assistance Continue DARWIN drain Daily wound care (2) Postoperative anemia due to acute blood loss Current Visit: Yes Status: Acute Stable (3) BPH (benign prostatic hyperplasia) Current Visit: Yes Status: Chronic Qualifiers: Lower urinary tract symptom presence: symptoms absent Qualified Code(s): N40.0 - Benign prostatic hyperplasia without lower urinary tract symptoms (4) Nausea Current Visit: Yes Status: Acute Suspect post-operative ileus NPO except ice chips IV fluids Give dose of gastrograffin PO Check 2V abdominal x-ray in 2 hours (5) Ileus, postoperative Current Visit: Yes Status: Acute Suspect post-operative ileus NPO except ice chips IV fluids Give dose of gastrograffin PO Check 2V abdominal x-ray in 2 hours (6) DVT prophylaxis Current Visit: Yes Status: Acute Continue SQ heparin 5,000 units SQ twice daily for DVT prophylaxis EPCDs to bilateral lower extremities for DVT prophylaxis Ambulate hallways TID with assistance Subjective Patient reports: no new complaints, feels better, still having pain, pain is less, voiding w/o difficulty, flatus (passed flatus for the first time today), bowel movement (BM just now after walking), nausea (improving), fever (Tmax 99.9 , Tcurrent- 99.2) Objective Vital Signs - Last 8 Hours Temp Pulse Resp BP Pulse Ox 11/01/17 11:08 99.2 F 78 18 133/68 98 11/01/17 07:15 99.3 F 80 18 117/70 99 Intake and Output 10/31/17 11/01/17 11/01/17 23:59 07:59 15:59 Intake Total 0 / 0 0 / 0 120 / 120 Output Total 0 / 0 0 / 0 Balance -10 -10 0 / 0 120 / 120 Intake: Oral 0 / 0 0 / 0 120 / 120 Output: Urine 0 / 0 0 / 0 Wound Drainage Left Lower Abdomen Other: Meal Dinner- 2 bites of pudding Breakfast Percent of Meal Consumed 50% # Voids 1 - General physical appearance well developed, well nourished, no distress - Eyes normal ocular movement - ENT normal mucosa, atraumatic, normocephalic - Neck Neck exam: trachea midline - Respiratory normal respiratory effort, clear to auscultation - Cardiovascular Cardiovascular exam: Present: RRR - Abdomen Abdomen: Present: bowel sounds present, soft, distended, tender (expected post- operative tenderness), wound (DARWIN drain to bulb suction with serous drainage noted) - Incision Incision: Present: clean and dry, intact - Neurologic CN 2-12 grossly intact - Musculoskeletal normal gait, normal posture - Psychiatric oriented to time, oriented to person, oriented to place, speech is normal, memory intact - Labs 10/31/17 06:14 10/31/17 06:14 - VTE Documentation of Mechanical Device: Intermittent pneumatic compression device Consult Discharge Plan - Plan Additional Instructions: Surgery instructions: #1 May shower, no tub bath X 2 weeks #2 Wash incisions with soap and water and pat dry daily; may leave open to air #3 No lifting/pushing/pulling greater than 20 lb. for 4 weeks #4 No driving until off narcotics and able to safely react in the care #5 May climb stairs #6 Incentive Spirometer every 1 hour while awake DARWIN drain- cleanse around drain with soap and water in the shower daily, pat dry. Suspend drain so that there is no tension on the drain. Empty drain 2-3 times per day and as needed if full. Record outputs on drain record (mLs) and bring to follow-up appointment on 11/09/17 with Tete Timmons CNP Wound care- Cleanse Midline with soap and water and pat dry daily, pack open areas with 1/4 inch plain gauze, cover with dry 4X4 gauze and tape to secure daily. Referrals: Tete Timmons, [facility] [Advanced Practice Nurse] - 11/09/17 9:00 am (surgery follow-up; drain check) [facility] Provider[facility] - (1-2 weeks hospital follow-up) Prescriptions: Ondansetron ODT [Zofran ODT] 4 mg SL Q6HR #30 tab.rapdis Ibuprofen [Motrin] 800 mg PO Q8HR PRN #40 tablet PRN Reason: Mild Pain OxyCODONE Immed Rel [Roxicodone 5 MG] 5 mg PO ONCE PRN 7 Days #30 tablet PRN Reason: moderate pain - Attending Attestation For this encounter, I have reviewed the PROFILING MACHINE SET UP OPERATOR or PA documentation, treatment plan, and medical decision making; and I have had face to face time with this patient.
[2017-11-01] MEDS: 0.9 % Sodium Chloride 1,000 ML IVC SCH (15:39)
--- NOTE | 2017-11-01 18:26 | Oncology Inp Consult Note ---
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 Patient has tumor perforation and possible serosal seeding. He underwent right robotic hemicolectomy October 25, 2017 with an excellent recovery. I met with the patient as well as his son today. I reviewed his history and imaging. He does not have ricky evidence of metastatic disease. The optimal course of therapy would be to pursue adjuvant chemotherapy with either FOLFOX or CAPEOX. This was discussed with the patient. I also reviewed this case with my colleague, Dr. Sam at [facility] who agrees with this approach. He would not recommend HIPEC unless this gentleman has a long disease -free interval with peritoneal only recurrence. Literature would echo that peritoneal tumor debulking with HIPEC for signet ring carcinoma is of low yield with the exception of a few unique cases. The patient and his son would like referral to the [facility] for an opinion regarding this issue. His cousin also research clinical trials but these are applicable to the metastatic setting. This would not apply this gentleman in his current state. All questions were answered to best of my ability. To complete staging, I will obtain an outpatient PET CT scan in approximately 2- 3 weeks' time. I will then have I will then have him follow up in clinic with me to finalize her treatment plan. (2) Postoperative anemia due to acute blood loss Status: Acute Assessment and plan: I will obtain a ferritin and iron profile studies for tomorrow morning. If decreased, we will arrange IV iron while hospitalized. - Data of Consult Requesting Physician: Jl Marrero DO Primary Care Provider: PCP DC - Consult Narrative Reason for consult: Newly diagnosed signet ring cell carcinoma of the cecum History of present illness: Mr. Sierra is a 67 year old male with minimal medical problems who presented to the degenerative department with increasing right lower quadrant pain. Patient initially thought he had IBS. For number of years, he has had frequent loose stools. You have one to 2 loose stools in the evening. He tried different dietary modifications without improvement. In June of this year, he started to develop crampy abdominal pain. This pain would wax and wane. His bowel habits to change a bit as well during this period of time. Interim gallbladder ultrasound which was unremarkable. His pain increased prompting him to present to the emergency department last week where CT imaging with contrast of the abdomen dated 10/23/2017 revealed hepatic steatosis and right lower quadrant findings concerning for acute appendicitis. Ultimately, the patient underwent robotic right hemicolectomy with care of Dr. Marrero 10/25/2017. He was found to have a 7 cm poorly differentiated signet ring cell carcinoma of the cecum. 16 of 18 lymph nodes were involved with malignancy. There were numerous tumor deposits and perforation. The tumor did invade the visceral peritoneum. He did developed a hemoperitoneum postoperatively from which she has recovered. His current postop day 7. Of note, patient undergo screening colonoscopy approximately 5 years ago and this was reportedly negative. His did pass with complications metastatic colon cancer young age, 39 years old. Her care was provided [facility]. His son is at the bedside. 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 Past Med Surg Social Fam HX - Past Medical History Medical history: non-contributory Psychiatric history: no psych history - Past Surgical History Surgical History: no surgical history - Social History Smoking Status: Never smoker Smokeless Tobacco Status: No Alcohol use: none Drug use: none - Family History Mother Age: 91 Living Status: Still Living Hx Family Cancer: Yes ("female cancer" s/p hysterectomy) Hx Family GI Disorders: Yes (hiatal hernia) Hx Family Medical Disorders: Yes (blood transfusion) Father Living Status: Age at : 62 Cause of : pancreatic cancer Hx Family Cancer: Yes (Pancreatic cancer) Medications and Allergies EPINEPHrine [Epipen] 0.3 mg IM ONCE PRN 10/25/17 [History] Finasteride [Proscar] 5 mg PO DAILY 10/25/17 [History] Omeprazole [PriLOSEC] 20 mg PO DAILY 10/25/17 [History] Tamsulosin [Flomax] 0.4 mg PO DAILY 10/25/17 [History] valACYclovir [Valtrex] 2 tab PO Q12H 10/25/17 [History] Ibuprofen [Motrin] 800 mg PO Q8HR PRN #40 tablet 10/31/17 [Rx] Ondansetron ODT [Zofran ODT] 4 mg SL Q6HR #30 tab.rapdis 10/31/17 [Rx] OxyCODONE Immed Rel [Roxicodone 5 MG] 5 mg PO ONCE PRN 7 Days #30 tablet [Rx] 3 Allergy/AdvReac Type Severity Reaction Status Date / Time Hydromorphone [From Dilaudid] Allergy Unresponsiv Verified 10/25/17 08:55 e meperidine [From Demerol] Allergy Hives Verified 10/25/17 08:55 All systems: reviewed and no additional remarkable complaints except as stated Constitutional: Present: fatigue, weakness Eyes: Present: as per HPI Ears: Present: as per HPI Cardiovascular: Present: as per HPI Respiratory: Present: as per HPI Gastrointestinal: Present: abdominal pain, bloating, change in bowel habits, diarrhea Musculoskeletal: Present: as per HPI Oncology - Exam - Constitutional Vitals: Temp Pulse Resp BP Pulse Ox 98.2 F 83 18 134/70 97 11/01/17 15:20 11/01/17 15:20 11/01/17 15:20 11/01/17 15:20 11/01/17 15:20 General appearance: average body habitus - Head Head exam: Present: atraumatic, normal inspection, normocephalic - Eye Eye exam: Present: normal appearance, conjuntiva pink - ENT ENT exam: Present: mucous membranes moist, normal exam, normal oropharynx - Neck Neck exam: Present: full ROM, normal inspection - Respiratory Respiratory exam: Present: CTAB - Cardiovascular Cardiovascular exam: Present: RRR - GI/Abdominal GI/Abdominal exam: Present: distended, normal bowel sounds, soft, tenderness - Extremities Exam Extremities exam: Present: pedal edema - Neurological Exam Neurological exam: Present: alert, CN II-XII intact, oriented X3, no focal deficits - Skin Skin exam: Present: normal color Oncology - Results Labs: Laboratory Results - last 48 hr 10/30/17 10/31/17 10/31/17 05:36 06:14 06:14 WBC 5.4 RBC 2.78 L Hgb 8.0 L Hct 24.3 L MCV 87.4 MCH 28.8 MCHC 32.9 RDW 14.6 H Plt Count 248 MPV 9.8 Immature Gran % 3.4 Seg Neutrophils % 61.0 Lymphocytes % 15.3 Monocytes % 13.0 Eosinophils % 6.7 Basophils % 0.6 Neutrophils # 3.3 Lymphocytes # 0.8 Monocytes # 0.7 Eosinophils # 0.4 Basophils # 0.0 Sodium 140 Potassium 3.4 L Chloride 108 H Carbon Dioxide 26 BUN 14 Creatinine 0.76 Est GFR ( Amer) > 60 Est GFR (Non-Af Amer) > 60 BUN/Creatinine Ratio 18 Glucose 113 H POC Glucose 106 H Calculated Osmolality [address] OF THE ABDOMEN AND PELVIS WITHOUT CONTRAST, 10/26/2017 3:49 pm FINDINGS: Lower Chest: The heart is mildly enlarged. There is visualization of the interventricular septum of the heart suggesting underlying anemia. There are calcified granulomata noted in the right lung base. There are calcified right infrahilar and subcarinal lymph nodes. There are small bilateral pleural effusions with associated bibasilar atelectasis. No pneumothorax. Organs: There is diffuse fatty infiltration of the liver. No focal liver lesion is identified. There is vicarious excretion of contrast in the gallbladder. The adrenal glands are unremarkable. The pancreas is normal in appearance. Calcified splenic granulomas are noted. There is a small amount of hemorrhage surrounding the spleen which is new. The kidneys are unremarkable. There is no hydronephrosis or nephro-urolithiasis. GI/Bowel: Contrast is noted in the colon. Postsurgical changes are noted from a right hemicolectomy with suture noted along the colon, small bowel, and right pericolic gutter. There is asymmetric hemorrhage noted in the right pericolic gutter, as well as along the right side of the mesenteric. The right paramidline mesenteric hematoma measures approximately 6.4 x 3.2 x 12.9 cm. Moderate hemorrhage is noted in the pelvis. There is pneumoperitoneum as well as air noted along the left pelvic sidewall, superficial to the peritoneum, likely related to recent surgery. Nonspecific subcutaneous air is noted along the anterior abdominal wall. There is a small hiatal hernia. There is a suspected duodenal diverticulum, unchanged. Pelvis: The prostate gland is mildly enlarged. There is contrast noted in the bladder, as well as a Hair catheter. There is no inguinal or pelvic sidewall lymphadenopathy. Peritoneum/Retroperitoneum: Atherosclerotic plaque is noted in the aorta. No retroperitoneal adenopathy. There is a small umbilical hernia. Skin lashell are noted along the anterior abdominal wall. Bones/Soft Tissues: There is no appreciable soft tissue swelling. Degenerative changes are noted in the spine. No fracture or osseous destructive lesion. CT/CT abd pelvis wo no iv no oral IMPRESSION: 1. There is pneumoperitoneum and hemoperitoneum, likely related to the recent surgery. The largest collection of blood is noted along the right side of the mesentery measuring approximately 12 x 6 x 3 cm. 2. Postsurgical changes are noted from a right hemicolectomy performed yesterday. 3. Fatty liver. 4. Small bilateral pleural effusions with associated atelectasis in the lung bases. 5. Hiatal hernia. Results were discussed with Dr. Herron at 4:02 p.m. on 10/26/2017. Consult Discharge Plan - Plan Additional Instructions: Surgery instructions: #1 May shower, no tub bath X 2 weeks #2 Wash incisions with soap and water and pat dry daily; may leave open to air #3 No lifting/pushing/pulling greater than 20 lb. for 4 weeks #4 No driving until off narcotics and able to safely react in the care #5 May climb stairs #6 Incentive Spirometer every 1 hour while awake DARWIN drain- cleanse around drain with soap and water in the shower daily, pat dry. Suspend drain so that there is no tension on the drain. Empty drain 2-3 times per day and as needed if full. Record outputs on drain record (mLs) and bring to follow-up appointment on 11/09/17 with Tete Timmons CNP Wound care- Cleanse Midline with soap and water and pat dry daily, pack open areas with 1/4 inch plain gauze, cover with dry 4X4 gauze and tape to secure daily. Referrals: Tete Timmons CNP [Advanced Practice Nurse] - 11/09/17 9:00 am (surgery follow-up; drain check) [facility] - (1-2 weeks hospital follow-up) Prescriptions: Ibuprofen [Motrin] 800 mg PO Q8HR PRN #40 tablet PRN Reason: Mild Pain Ondansetron ODT [Zofran ODT] 4 mg SL Q6HR #30 tab.rapdis OxyCODONE Immed Rel [Roxicodone 5 MG] 5 mg PO ONCE PRN 7 Days #30 tablet PRN Reason: moderate pain
[2017-11-02] MEDS: 0.9 % Sodium Chloride 1,000 ML IVC SCH (05:27)
[2017-11-02] MEDS: *HR* Heparin 5,000 UNIT/ML VIAL SQ SCH ×2 (05:28→18:05)
[2017-11-02 05:41] LABS: % Iron Saturation 7 % (20-55); Ferritin 144 ng/ml (20-250); Iron 19 mcg/dL (65-175); Transferrin 181 mg/dL (203-362)
[2017-11-02 05:43] LABS: BUN/Creatinine Ratio 19 (6-26); Blood Urea Nitrogen 16 mg/dL (8-23); Calcium 7.9 mg/dL (8.6-10.3); Carbon Dioxide 26 mEq/L (23-29); Chloride 109 mEq/L (98-107); Glucose 96 mg/dL (70-105); Osmolality,Calculated 295 (280-300); Potassium 3.6 mEq/L (3.5-5.1); Sodium 142 mEq/L (136-145); eGFR For African Americans > 60 (> 60); eGFR For Non-African Americans > 60 (> 60)
[2017-11-02 05:45] LABS: Basophils # 0.1 K/mcL (0.0-0.2); Basophils % 0.7 %; Eosinophils # 0.2 K/mcL (0.0-0.6); Eosinophils % 2.8 %; Hematocrit 25.7 % (37.5-50.1); Hemoglobin 8.1 g/dL (12.9-16.9); Immature Granulocytes % 6.1 % (0-4); Lymphocytes % 14.1 %; Mean Corpuscular HGB Conc 31.5 g/dL (31.6-35.5); Mean Corpuscular Hemoglobin 28.5 pg (28.0-33.3); Mean Corpuscular Volume 90.5 fL (83.0-100.0); Mean Platelet Volume 9.7 fL (9.4-12.4); Monocytes # 0.8 K/mcL (0.0-1.3); Monocytes % 10.9 %; Neutrophils # 4.7 K/mcL (1.6-8.9); Nucleated Red Blood Cells 0.3 /100 WBC (0); Platelet Count 321 K/mcL (140-400); Red Blood Count 2.84 M/mcL (4.19-5.50); Red Cell Distribution Width 14.8 % (11.5-14.5); Segmented Neutrophils % 65.4 %
[2017-11-02 06:25] LABS: Large Platelets Present (Not Present); Platelet Estimate Normal (Normal)
[2017-11-02] MEDS: GuaiFENesin/Dextromethorphan TABLET PO SCH ×2 (08:22→20:17)
[2017-11-02] MEDS: Finasteride 5 MG TABLET PO SCH (08:22)
--- NOTE | 2017-11-02 11:47 | General Surgery Progress Note ---
Date of Encounter: 11/02/17 Time of Encounter: 09:00 - Assessment and Plan (1) Cecum mass Current Visit: Yes Status: Acute POD #8 robotic assisted right hemicolectomy with Dr. Marrero POD #7 diagnostic laparoscopy with closure of colotomy with Dr. Marrero Pathology- Invasive signet ring adenocarcinoma. Sixteen of eighteen pericolonic lymph nodes positive for metastatic carcinoma ( 16/18). 3 AJCC 8th edition pathologic stage: pT4a, pN2b (stage IIIC) Comment: Carcinoma within a lymph node is less than 1 mm from the radial margin. There is limited outcome data for cases with intranodal tumor within 1 mm of radial resection margin, but follow-up based on a small number of patients suggests that local recurrence in these tumors may be similar to those with negative margin. Oncology following - Dr. Tyler. CEA noted 2.6 Noted ileus on exam yesterday. Pt states significant improvement in abdominal distention and discomfort as/PE multiple bowel movements. It's to view abdominal x-ray this a.m. notes contrast visualized in the colon and interval increase in the dilation of loops of small bowel consistent with ileus (pt notes 2 BMs since returning from XR). DARWIN drain with small amount of Serous drainage noted in the DARWIN. zero output is recorded for 2 days, but patient notes that there has been difficulty keeping DARWIN bulb on suction. Plan: Cautiously add Clear liquid diet IV fluids- 50 ml/hour Supportive care and pain control IS every 1 hour while awake PPI therapy daily Out of bed to chair and ambulate hallways TID with assistance Continue DARWIN drain; consideration for d/c prior to d/c from hospital if decreased output continues. Daily wound care (2) BPH (benign prostatic hyperplasia) Current Visit: Yes Status: Chronic Stable, continue to monitor Qualifiers: Lower urinary tract symptom presence: symptoms absent Qualified Code(s): N40.0 - Benign prostatic hyperplasia without lower urinary tract symptoms (3) DVT prophylaxis Current Visit: Yes Status: Acute EPCDs while in bed. Heparin SQ BID AMbulate and up to chair TID (4) Nausea Current Visit: Yes Status: Acute Resolved (5) Ileus, postoperative Current Visit: Yes Status: Acute See above. Subjective Patient reports: no new complaints, feels better, pain is less, voiding w/o difficulty, flatus, bowel movement, afebrile Narrative: Mr Sierra reports that he has had 3 to 4 bowel movements overnight in this a.m. He denies nausea or vomiting. He states his abdominal discomfort is controlled. He requests clear liquids. Objective Vital Signs - Last 8 Hours Temp Pulse Resp BP Pulse Ox 11/02/17 10:20 98.2 F 81 14 129/71 93 11/02/17 08:16 95 11/02/17 06:53 98.8 F 77 14 121/70 95 Intake and Output 11/01/17 11/02/17 11/02/17 23:59 07:59 15:59 Intake Total 60 / 60 1000 / 1000 0 / 0 Output Total 0 / 0 0 / 0 0 / 0 Balance 60 / 60 1000 / 1000 0 / 0 Intake: IV Fluids 1000 / 1000 0.9 % Sodium Chloride 1,000 ML 1000 / 1000 @ 75 mls/hr IVC .[id number] [facility] Rx #:[id number] Oral 60 / 60 0 / 0 0 / 0 Output: Urine 0 / 0 0 / 0 0 / 0 Wound Drainage 0 / 0 0 / 0 0 / 0 Left Lower Abdomen 0 / 0 0 / 0 0 / 0 Other: Stool Size Small Small Stool Consistency liquid loose Stool Characteristics Seedy Stool Color Brown Yellow # Voids 2 1 1 # Bowel Movements 2 1 1 Weight 90.5 kg Blood Glucose* 108 Patient Weight 11/02/17 23:59 Weight 90.5 kg - General physical appearance well nourished, no distress, no pain - Eyes normal ocular movement - ENT atraumatic, normocephalic - Neck Neck exam: trachea midline, no venous distension - Respiratory normal expansion, normal respiratory effort, clear to auscultation - Cardiovascular Cardiovascular exam: Present: RRR - Abdomen Abdomen: Present: bowel sounds present, soft, distended (Mildly distended), tender (Expected postoperative) Hernia: none - Incision Incision: Present: intact, open (Packing noted.) - Integumentary no abnormal pigmentation - Neurologic normal coordination, normal sensation - Musculoskeletal normal gait, normal posture - Psychiatric oriented to time, oriented to person, oriented to place, speech is normal, memory intact - Labs 11/02/17 04:20 11/02/17 04:20 Diabetes panel 11/02/17 Range/Units 04:20 Sodium 142 (136-145) mEq/L Potassium 3.6 (3.5-5.1) mEq/L Chloride 109 H (98-107) mEq/L Carbon Dioxide 26 (23-29) mEq/L BUN 16 (8-23) mg/dL Creatinine 0.84 (0.70-1.30) mg/dL Glucose 96 (70-105) mg/dL Calcium 7.9 L (8.6-10.3) mg/dL Calcium panel 11/02/17 Range/Units 04:20 Calcium 7.9 L (8.6-10.3) mg/dL Pituitary panel 11/02/17 Range/Units 04:20 Sodium 142 (136-145) mEq/L Potassium 3.6 (3.5-5.1) mEq/L Chloride 109 H (98-107) mEq/L Carbon Dioxide 26 (23-29) mEq/L BUN 16 (8-23) mg/dL Creatinine 0.84 (0.70-1.30) mg/dL Glucose 96 (70-105) mg/dL Calcium 7.9 L (8.6-10.3) mg/dL Adrenal panel 11/02/17 Range/Units 04:20 Sodium 142 (136-145) mEq/L Potassium 3.6 (3.5-5.1) mEq/L Chloride 109 H (98-107) mEq/L Carbon Dioxide 26 (23-29) mEq/L BUN 16 (8-23) mg/dL Creatinine 0.84 (0.70-1.30) mg/dL Glucose 96 (70-105) mg/dL Calcium 7.9 L (8.6-10.3) mg/dL - VTE Documentation of Mechanical Device: Intermittent pneumatic compression device Consult Discharge Plan - Plan Additional Instructions: Surgery instructions: #1 May shower, no tub bath X 2 weeks #2 Wash incisions with soap and water and pat dry daily; may leave open to air #3 No lifting/pushing/pulling greater than 20 lb. for 4 weeks #4 No driving until off narcotics and able to safely react in the care #5 May climb stairs #6 Incentive Spirometer every 1 hour while awake DARWIN drain- cleanse around drain with soap and water in the shower daily, pat dry. Suspend drain so that there is no tension on the drain. Empty drain 2-3 times per day and as needed if full. Record outputs on drain record (mLs) and bring to follow-up appointment on 11/09/17 with Tete Timmons CNP Wound care- Cleanse Midline with soap and water and pat dry daily, pack open areas with 1/4 inch plain gauze, cover with dry 4X4 gauze and tape to secure daily. Referrals: Tete Timmons CNP [Advanced Practice Nurse] - 11/09/17 9:00 am (surgery follow-up; drain check) [facility] - (1-2 weeks hospital follow-up) Prescriptions: Ondansetron ODT [Zofran ODT] 4 mg SL Q6HR #30 tab.rapdis Ibuprofen [Motrin] 800 mg PO Q8HR PRN #40 tablet PRN Reason: Mild Pain OxyCODONE Immed Rel [Roxicodone 5 MG] 5 mg PO ONCE PRN 7 Days #30 tablet PRN Reason: moderate pain
[2017-11-02] MEDS ORDERED: *HR* OxyCODONE/APAP 5/325 TABLET PO PRN (12:45)
[2017-11-02] MEDS ORDERED: Ibuprofen 800 MG TABLET PO PRN (12:47)
--- NOTE | 2017-11-02 16:36 | Oncology Inp Progress Note ---
Date of Encounter: 11/02/17 Time of Encounter: 16:36 (1) Cecum mass Current Visit: Yes Status: Acute Assessment and plan: Mr. Kim met with Dr. 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 He does not have ricky evidence of metastatic disease. Patient has tumor perforation and possible serosal seeding. He underwent right robotic hemicolectomy October 25, 2017 and continues to recover quite well. The optimal course of therapy would be to pursue adjuvant chemotherapy with either FOLFOX or CAPEOX. Patient reports that he has no further questions for me at this time. He was quite pleased with Dr. Tyler and feels well informed following their meeting last evening. I gave him his appointment card for follow-up with Dr. Tyler next week, PET/CT scan for staging to be pursued an outpatient basis following his appointment. Iron workup reveals deficiency with iron at 19 and 7% saturation. Dr. Tyler would like IV iron to be infused during hospital stay. Discussed lab findings with patient today and need for IV iron replacement. I will order Venofer 400 mg x1 to be infused today. Patient understands there is a rare but nonetheless real chance of hypersensitivity or anaphylactic reaction possible with IV Iron and advised to let staff know of any new or concerning symptoms experienced during or shortly after iron infusion. Oncology: Subj Interval history: Mr. Sierra reports that he is recovering well. He is sitting up in his chair in his room, daughter at bedside. Pain well-controlled, he does report slight post op abdominal tenderness as to be expected. Passing gas and stool without difficulty. - Constitutional Vitals: Vital Signs Temp Pulse Resp BP Pulse Ox 11/02/17 13:57 98.8 F 82 14 137/67 93 11/02/17 10:20 98.2 F 81 14 129/71 93 11/02/17 08:16 95 11/02/17 06:53 98.8 F 77 14 121/70 95 11/02/17 02:00 98.5 F 74 15 121/69 98 11/02/17 00:17 98.7 F 79 18 134/77 97 11/01/17 20:06 98.1 F 92 17 138/71 99 Intake and Output 11/02/17 11/02/17 11/02/17 07:59 15:59 23:59 Intake Total 1000 / 1000 240 / 240 Output Total 0 / 0 0 / 0 Balance 1000 / 1000 240 / 240 Intake: IV Fluids 1000 / 1000 0.9 % Sodium Chloride 1,000 ML 1000 / 1000 @ 75 mls/hr IVC .[id number] [facility] Rx #:[id number] Oral 0 / 0 240 / 240 Output: Urine 0 / 0 0 / 0 Wound Drainage 0 / 0 0 / 0 Left Lower Abdomen 0 / 0 0 / 0 Other: Meal Lunch Percent of Meal Consumed 5% Stool Size Small Stool Consistency loose # Voids 1 2 # Bowel Movements 1 1 Weight 90.5 kg Blood Glucose* 108 Patient Weight 11/02/17 23:59 Weight 90.5 kg General appearance: cooperative, no acute distress, no febrile - Head Head exam: Present: atraumatic - Respiratory Respiratory exam: Present: CTAB. Absent: respiratory distress - Cardiovascular Cardiovascular exam: Present: RRR, +S1, +S2 - GI/Abdominal GI/Abdominal exam: Present: normal bowel sounds, soft, tenderness Additional comments: Postoperative tenderness as to be expected, dressing dry and intact, DARWIN drain with serosanguineous drainage. - Extremities Exam Extremities exam: Present: pedal edema. Absent: calf tenderness - Neurological Exam Neurological exam: Present: alert, oriented X3, no focal deficits, strengths equal and symetr throughout - Psychiatric Psychiatric exam: Present: normal affect, normal mood - Skin Skin exam: Present: normal color, warm Oncology: Obj Data - Labs CBC & Chem 7: 11/02/17 04:20 11/02/17 04:20 - Impressions Impressions Abdomen X-Ray 11/02/17 07:00 IMPRESSION: Contrast is now visualized in the colon. There is however an increase in distention of small bowel loops in the left side of the abdomen when compared to the prior study. This suggest ileus versus partial small bowel obstruction. Continued follow-up suggested. D/ / 11/02/2017 08:34:00 Ivelisse Jenkins MD / Adelita Barajas Interpreting Provider: Ivelisse Jenkins MD - ABG Interpretation ABG results: PT/INR, D-dimer PT 11.6 Seconds (9.4-12.1) 10/25/17 09:13 Consult Discharge Plan - Plan Additional Instructions: Surgery instructions: #1 May shower, no tub bath X 2 weeks #2 Wash incisions with soap and water and pat dry daily; may leave open to air #3 No lifting/pushing/pulling greater than 20 lb. for 4 weeks #4 No driving until off narcotics and able to safely react in the care #5 May climb stairs #6 Incentive Spirometer every 1 hour while awake DARWIN drain- cleanse around drain with soap and water in the shower daily, pat dry. Suspend drain so that there is no tension on the drain. Empty drain 2-3 times per day and as needed if full. Record outputs on drain record (mLs) and bring to follow-up appointment on 11/09/17 with Tete Timmons CNP Wound care- Cleanse Midline with soap and water and pat dry daily, pack open areas with 1/4 inch plain gauze, cover with dry 4X4 gauze and tape to secure daily. Referrals: Tete Timmons CNP [Advanced Practice Nurse] - 11/09/17 9:00 am (surgery follow-up; drain check) [facility] - (1-2 weeks hospital follow-up) Prescriptions: Ondansetron ODT [Zofran ODT] 4 mg SL Q6HR #30 tab.rapdis Ibuprofen [Motrin] 800 mg PO Q8HR PRN #40 tablet PRN Reason: Mild Pain OxyCODONE Immed Rel [Roxicodone 5 MG] 5 mg PO ONCE PRN 7 Days #30 tablet PRN Reason: moderate pain
[2017-11-02] MEDS ORDERED: Iron Sucrose Complex 400 MG in 0.9 % Sodium Chloride 250 ML IVPB ONE (17:49)
[2017-11-03] MEDS: *HR* Heparin 5,000 UNIT/ML VIAL SQ SCH (05:19)
[2017-11-03 05:20] LABS: Eosinophils # 0.3 K/mcL (0.0-0.6); Mean Corpuscular Hemoglobin 28.5 pg (28.0-33.3); Mean Platelet Volume 9.6 fL (9.4-12.4); Nucleated Red Blood Cells 0.3 /100 WBC (0); Platelet Count 334 K/mcL (140-400); Red Blood Count 2.81 M/mcL (4.19-5.50); Red Cell Distribution Width 14.7 % (11.5-14.5)
[2017-11-03 06:02] LABS: BUN/Creatinine Ratio 17 (6-26); Blood Urea Nitrogen 14 mg/dL (8-23); Calcium 7.7 mg/dL (8.6-10.3); Carbon Dioxide 27 mEq/L (23-29); Chloride 106 mEq/L (98-107); Glucose 108 mg/dL (70-105); Osmolality,Calculated 289 (280-300); Phosphorous 2.7 mg/dL (2.7-4.5); Potassium 3.3 mEq/L (3.5-5.1); Sodium 139 mEq/L (136-145); eGFR For African Americans > 60 (> 60); eGFR For Non-African Americans > 60 (> 60)
[2017-11-03 06:10] LABS: Lymphocytes # 1.4 K/mcL (0.6-4.6); Monocytes # 0.3 K/mcL (0.0-1.3); Neutrophils # 5.7 K/mcL (1.6-8.9); Platelet Estimate Normal (Normal)
[2017-11-03] MEDS ORDERED: Potassium Chloride 20 MEQ, Lidocaine 1% 2 ML in D5% in Water 250 ML IVPB ONE (07:06)
[2017-11-03] MEDS: GuaiFENesin/Dextromethorphan TABLET PO SCH (10:09)
[2017-11-03] MEDS: Finasteride 5 MG TABLET PO SCH (10:09)
[2017-11-03 11:21] VITALS: BP 144/69
--- NOTE | 2017-11-03 13:43 | Physician Discharge Referral ---
Home Health/Hosp Referral Info Transfer to: Home Health Attending Provider: Dr. Claudine Marrero Provider in Charge Post Discharge: Other (Dr. Nila Marrero) - Diagnosis (1) Cecum mass Priority: Primary Status: Acute (2) BPH (benign prostatic hyperplasia) Priority: Secondary Status: Chronic (3) DVT prophylaxis Priority: Secondary Status: Acute (4) Nausea Priority: Secondary Status: Acute (5) Ileus, postoperative Priority: Secondary Status: Acute - Respiratory Orders Smoking Cessation: Smoking cessation has been advised. For more information, call the [place] Tobacco Quit Line at 6-654-KPXL-NOW. - Dressing/Wound Care Site: Midline abdomen and DARWIN drain site Type of Dressing/Treatments w/Frequency: DARWIN drain- cleanse around drain with soap and water in the shower daily, pat dry. Suspend drain so that there is no tension on the drain. Empty drain 2-3 times per day and as needed if full. Record outputs on drain record (mLs) and bring to follow-up appointment on 11/09/17 with Tete Timmons CNP Wound care- Cleanse Midline with soap and water and pat dry daily, pack open areas with 1/4 inch plain gauze, cover with dry 4X4 gauze and tape to secure daily. supplies have been given to the patient - Diet/Nutrition Diet/Nutrition Orders: Regular - Activity Activity Orders: Up ad maureen - Services Needed Following services are medically necessary services: Nursing - Transfer Medications Prescriptions: Ondansetron ODT [Zofran ODT] 4 mg SL Q6HR #30 tab.rapdis Ibuprofen [Motrin] 800 mg PO Q8HR PRN #40 tablet PRN Reason: Mild Pain Docusate Sodium [Colace] 100 mg PO BID PRN #30 capsule PRN Reason: Constipation OxyCODONE Immed Rel [Roxicodone 5 MG] 5 mg PO ONCE PRN 7 Days #30 tablet PRN Reason: moderate pain Home Medications: EPINEPHrine [Epipen] 0.3 mg IM ONCE PRN 10/25/17 [History] Finasteride [Proscar] 5 mg PO DAILY 10/25/17 [History] Omeprazole [PriLOSEC] 20 mg PO DAILY 10/25/17 [History] Tamsulosin [Flomax] 0.4 mg PO DAILY 10/25/17 [History] valACYclovir [Valtrex] 2 tab PO Q12H 10/25/17 [History] Ibuprofen [Motrin] 800 mg PO Q8HR PRN #40 tablet 10/31/17 [Rx] Ondansetron ODT [Zofran ODT] 4 mg SL Q6HR #30 tab.rapdis 10/31/17 [Rx] OxyCODONE Immed Rel [Roxicodone 5 MG] 5 mg PO ONCE PRN 7 Days #30 tablet [Rx] Docusate Sodium [Colace] 100 mg PO BID PRN #30 capsule 11/03/17 [Rx] Allergies/Adverse Reactions: 3 Allergy/AdvReac Type Severity Reaction Status Date / Time Hydromorphone [From Dilaudid] Allergy Unresponsiv Verified 10/25/17 08:55 e meperidine [From Demerol] Allergy Hives Verified 10/25/17 08:55 Certification: Further, I certify that my clinical findings support that this patient is homebound (i.e. absences from home require considerable and taxing effort and are for medical reasons or religion services or infrequently or short duration when for other reasons) because: Homebound Reason: Absences from home are contraindicated except to recieve medical care, Leaving home requires considerable and taxing effort due to condition Attestation: My signature below is to certify that this patient is under my care and that I, or nurse practitioner, or a physician's hospital nursing assistant working with me, has a face-to -face encounter with this patient.
--- NOTE | 2017-11-08 17:42 | Operative Note ---
Date of procedure: 10/26/17 Pre-op diagnosis: Peritonitis Post-op diagnosis: other (Colon staple line failure) Procedure: Diagnostic laparoscopy with identification of perforation followed by exploratory laparotomy with closure of perforation Anesthesia: MARTHAA Surgeon: Jl Marrero Was there an cataloging assistant present: Yes Traffic Rate Clerk: Magali Gay Estimated blood loss (cc): 5 Specimen: colon Condition: stable Disposition: same day Procedure in Detail: After informed consent, the patient was taken to the operating room placed in a supine position. After adequate sedation and anesthesia the abdomen was prepped and draped. The same incisions were used as his prior operation. 3 individual 5 mm ports were used strategically in the abdomen. Once a pneumoperitoneum was created, I inserted the camera into the abdomen and did a thorough inspection. The abdominal cavity had significant amount of old blood. However is concerned by bilious staining. I was then able to identify the anastomosis and it was intact. However the transection of the proximal colon appeared to have a staple line failure. Once this was identified then a laparoscopic Syeda was placed on the colon. The previous midline had been opened and once the sutures were removed and was able to bring up the colon through the midline. The colon was re-stapled to close the colotomy. I was unable to oversew this with 3-0 silk suture 3. At that point the abdomen was irrigated and suctioned dry the fascia was reclosed with a loop PDS suture. Skin lashell were placed as well as quarter inch gauze wicking.
== END 2017-11-03 16:45 | disposition home health service (06) | DRG 329 ==
LOC: EMEROO 08:50 → 3BNU 08:50 → 3ANU 10-30 12:49
PROVIDERS: ADMIT Surgery; ATTEND Surgery

== ENCOUNTER 2020-11-13 15:05 | Observation (INO) ==
[2020-11-13] MEDS ORDERED: 0.9 % Sodium Chloride 1,000 ML IVC ONE (16:28)
[2020-11-13 16:48] LABS: Basophils % 0.5 %; Eosinophils # 0.1 K/mcL (0.0-0.6); Eosinophils % 1.7 %; Hematocrit 24.4 % (37.5-50.1); Hemoglobin 7.5 g/dL (12.9-16.9); Immature Granulocytes % 0.3 % (0-4); Lymphocytes # 1.1 K/mcL (0.6-4.6); Lymphocytes % 19.3 %; Mean Corpuscular HGB Conc 30.7 g/dL (31.6-35.5); Mean Platelet Volume 9.8 fL (9.4-12.4); Monocytes # 0.4 K/mcL (0.0-1.3); Monocytes % 6.5 %; Neutrophils # 4.2 K/mcL (1.6-8.9); Platelet Count 221 K/mcL (140-400); Red Blood Count 2.68 M/mcL (4.19-5.50); Red Cell Distribution Width 13.3 % (11.5-14.5); Segmented Neutrophils % 71.7 %; White Blood Count 5.9 K/mcL (4.3-11.1)
[2020-11-13 16:54] LABS: INR 1.1; Prothrombin Time 12.9 Seconds (9.4-12.1)
[2020-11-13 17:09] LABS: Alanine Aminotransferase 33 Units/L (7-52); Albumin 4.5 g/dL (3.5-5.7); Albumin/Globulin Ratio 1.6 (1.1-2.2); Alkaline Phosphatase 49 Units/L (34-104); Aspartate Amino Transferase 27 Units/L (13-39); BUN/Creatinine Ratio 14 (6-26); Bilirubin,Indirect 0.4 mg/dL (0.0-1.0); Bilirubin,Total 0.4 mg/dL (0.3-1.0); Blood Urea Nitrogen 17 mg/dL (8-23); Calcium 9.2 mg/dL (8.6-10.3); Carbon Dioxide 25 mEq/L (23-29); Chloride 104 mEq/L (98-107); Globulin 2.8 g/dL (2.4-3.5); Glucose 111 mg/dL (70-105); Lipase 59 Units/L (11-82); Osmolality,Calculated 286 (280-300); Potassium 3.5 mEq/L (3.5-5.1); Sodium 137 mEq/L (136-145); Total Protein 7.3 g/dL (6.4-8.9); Troponin I < 0.03 ng/mL (< 0.04); eGFR For African Americans > 60 (> 60); eGFR For Non-African Americans 57 (> 60)
[2020-11-13] MEDS ORDERED: Pantoprazole 80 MG in 0.9 % Sodium Chloride 50 ML IVPB ONE (17:27)
[2020-11-13] MEDS ORDERED: Pantoprazole 40 MG VIAL IVP ONE (17:28)
[2020-11-13] MEDS ORDERED: Ondansetron 4 MG/2 ML VIAL IVP PRN (19:23)
[2020-11-13] MEDS ORDERED: Acetaminophen 325 MG TABLET PO PRN (19:23)
[2020-11-13] MEDS ORDERED: 0.9 % Sodium Chloride 250 ML IVC SCH (20:30)
[2020-11-14 05:43] LABS: Basophils % 0.6 %; Eosinophils # 0.2 K/mcL (0.0-0.6); Eosinophils % 2.8 %; Hematocrit 24.5 % (37.5-50.1); Hemoglobin 7.6 g/dL (12.9-16.9); Immature Granulocytes % 0.2 % (0-4); Lymphocytes # 1.4 K/mcL (0.6-4.6); Lymphocytes % 26.2 %; Mean Corpuscular Hemoglobin 28.3 pg (28.0-33.3); Mean Corpuscular Volume 91.1 fL (83.0-100.0); Mean Platelet Volume 10.3 fL (9.4-12.4); Monocytes # 0.5 K/mcL (0.0-1.3); Monocytes % 9.7 %; Neutrophils # 3.2 K/mcL (1.6-8.9); Platelet Count 180 K/mcL (140-400); Red Blood Count 2.69 M/mcL (4.19-5.50); Red Cell Distribution Width 13.5 % (11.5-14.5); Segmented Neutrophils % 60.5 %; White Blood Count 5.3 K/mcL (4.3-11.1)
[2020-11-14] MEDS ORDERED: Pantoprazole 40 MG VIAL IVP SCH (06:00)
[2020-11-14] MEDS ORDERED: 0.9 % Sodium Chloride 250 ML IVC SCH (06:00)
[2020-11-14 06:19] LABS: BUN/Creatinine Ratio 14 (6-26); Blood Urea Nitrogen 17 mg/dL (8-23); Calcium 8.4 mg/dL (8.6-10.3); Carbon Dioxide 24 mEq/L (23-29); Chloride 109 mEq/L (98-107); Glucose 105 mg/dL (70-105); Osmolality,Calculated 294 (280-300); Potassium 3.9 mEq/L (3.5-5.1); Sodium 141 mEq/L (136-145); eGFR For African Americans > 60 (> 60); eGFR For Non-African Americans 57 (> 60)
[2020-11-14 12:31] LABS: Hematocrit 27.3 % (37.5-50.1); Hemoglobin 8.6 g/dL (12.9-16.9)
[2020-11-14 19:13] LABS: Hematocrit 28.8 % (37.5-50.1)
[2020-11-14] MEDS: COLESTIPOL HCL 1 GM PO SCH (22:11)
[2020-11-15 06:28] LABS: Basophils % 0.6 %; Eosinophils # 0.1 K/mcL (0.0-0.6); Eosinophils % 2.6 %; Hematocrit 27.5 % (37.5-50.1); Hemoglobin 8.8 g/dL (12.9-16.9); Immature Granulocytes % 0.2 % (0-4); Lymphocytes # 1.2 K/mcL (0.6-4.6); Mean Corpuscular Hemoglobin 28.5 pg (28.0-33.3); Mean Platelet Volume 10.2 fL (9.4-12.4); Monocytes # 0.5 K/mcL (0.0-1.3); Monocytes % 9.8 %; Neutrophils # 2.9 K/mcL (1.6-8.9); Platelet Count 186 K/mcL (140-400); Red Blood Count 3.09 M/mcL (4.19-5.50); Red Cell Distribution Width 13.5 % (11.5-14.5); Segmented Neutrophils % 60.8 %; White Blood Count 4.7 K/mcL (4.3-11.1)
[2020-11-15 06:50] LABS: BUN/Creatinine Ratio 13 (6-26); Blood Urea Nitrogen 15 mg/dL (8-23); Calcium 8.4 mg/dL (8.6-10.3); Carbon Dioxide 25 mEq/L (23-29); Chloride 108 mEq/L (98-107); Glucose 107 mg/dL (70-105); Magnesium 2.4 mg/dL (1.6-2.6); Osmolality,Calculated 289 (280-300); Phosphorous 2.6 mg/dL (2.7-4.5); Potassium 3.9 mEq/L (3.5-5.1); Sodium 139 mEq/L (136-145); eGFR For African Americans > 60 (> 60); eGFR For Non-African Americans > 60 (> 60)
[2020-11-15] MEDS ORDERED: Finasteride 5 MG TABLET PO SCH (09:00)
[2020-11-15] MEDS: COLESTIPOL HCL 1 GM PO SCH (10:09)
[2020-11-15 10:39] VITALS: BP 114/72
== END 2020-11-15 11:31 | disposition home or self-care (01) ==
LOC: 3ANU 15:05 → EMEROOARM 15:05 → SUATTDRO 19:24 → 3ANU 20:43
PROVIDERS: ADMIT Internal Medicine; ATTEND Internal Medicine

== ENCOUNTER 2020-11-27 09:39 | Inpatient (IN) ==
[2020-11-27] MEDS ORDERED: Ringers Solution, Lactated 1,000 ML IVC SCH (10:45)
[2020-11-27] MEDS ORDERED: Morphine Sulfate 2 MG/ML SYRINGE IVP PRN (10:45)
[2020-11-27] MEDS ORDERED: *HR* HYDROcodone/Acet 5/325 mg TABLET PO PRN (10:45)
[2020-11-27] MEDS ORDERED: *HR* FentaNYL (PF) 100 MCG/2 ML VIAL ONE (10:48)
[2020-11-27] MEDS ORDERED: Ondansetron 4 MG/2 ML VIAL IVP PRN (10:48)
[2020-11-27] MEDS ORDERED: *HR* Midazolam HCl 2 MG/2 ML VIAL ONE (10:49)
[2020-11-27] MEDS ORDERED: *HR* Propofol 200 MG/20 ML VIAL IVP ONE (10:49)
[2020-11-27] MEDS ORDERED: *HR* Succinylcholine 200 MG/10 ML VIAL IVP ONE (10:49)
[2020-11-27] MEDS ORDERED: Lidocaine -MPF 2% 2 ML VIAL ONE (10:49)
[2020-11-27] MEDS ORDERED: Sugammadex Sodium 200 MG/2 ML VIAL IV ONE (10:49)
[2020-11-27] MEDS ORDERED: *HR* Rocuronium Bromide 50 MG/5 ML VIAL ONE (10:49)
[2020-11-27] MEDS ORDERED: Ondansetron 4 MG/2 ML VIAL ONE (10:49)
[2020-11-27] MEDS ORDERED: Lidocaine -MPF 4% 5 ML AMPUL ONE (10:49)
[2020-11-27] MEDS ORDERED: Dexamethasone 4 MG/ML VIAL ONE (10:49)
[2020-11-27] MEDS ORDERED: cefOXitin 2,000 MG in Water for inj. (sterile) 20 ML IVP ONE (11:34)
[2020-11-27] MEDS ORDERED: *HR* PHENYLEPHRINE 1,000 MCG/10 ML SYRINGE IVP ONE (12:25)
[2020-11-27] MEDS ORDERED: Acetaminophen IV 1,000 MG/100 ML BAG IVPB ONE (13:21)
[2020-11-27] MEDS ORDERED: Ketorolac 30 MG/ML VIAL ONE (13:50)
[2020-11-27] MEDS ORDERED: *HR* OxyCODONE Oral Soln 5 MG/5 ML UD.LIQ PO PRN (14:05)
[2020-11-27] MEDS ORDERED: Naloxone 0.4 MG/ML INJ IVP PRN (15:33)
[2020-11-27] MEDS: 0.9 % Sodium Chloride 1,000 ML IVC SCH (15:59)
[2020-11-27] MEDS ORDERED: Acetaminophen IV 1,000 MG/100 ML BAG IVPB SCH (18:00)
[2020-11-27] MEDS ORDERED: Ketorolac 15 MG/ML VIAL IVP SCH (18:00)
[2020-11-27] MEDS ORDERED: *HR* Heparin 5,000 UNIT/ML VIAL SQ SCH (18:00)
[2020-11-28 03:54] LABS: Hematocrit 25.5 % (37.5-50.1); Hemoglobin 7.9 g/dL (12.9-16.9); Immature Granulocytes % 0.4 % (0-4); Lymphocytes # 0.6 K/mcL (0.6-4.6); Lymphocytes % 7.4 %; Mean Corpuscular Hemoglobin 29.2 pg (28.0-33.3); Mean Corpuscular Volume 94.1 fL (83.0-100.0); Mean Platelet Volume 10.5 fL (9.4-12.4); Monocytes # 0.3 K/mcL (0.0-1.3); Monocytes % 3.8 %; Platelet Count 160 K/mcL (140-400); Red Blood Count 2.71 M/mcL (4.19-5.50); Red Cell Distribution Width 17.6 % (11.5-14.5); Segmented Neutrophils % 88.4 %; White Blood Count 7.4 K/mcL (4.3-11.1)
[2020-11-28 03:56] LABS: Neutrophils # 6.5 K/mcL (1.6-8.9)
[2020-11-28 04:14] LABS: BUN/Creatinine Ratio 14 (6-26); Blood Urea Nitrogen 17 mg/dL (8-23); Calcium 8.3 mg/dL (8.6-10.3); Carbon Dioxide 24 mEq/L (23-29); Chloride 108 mEq/L (98-107); Glucose 148 mg/dL (70-105); Osmolality,Calculated 290 (280-300); Potassium 4.2 mEq/L (3.5-5.1); Sodium 138 mEq/L (136-145); eGFR For African Americans > 60 (> 60); eGFR For Non-African Americans 57 (> 60)
[2020-11-28] MEDS: 0.9 % Sodium Chloride 1,000 ML IVC SCH ×2 (05:28→18:26)
[2020-11-29 02:19] LABS: Basophils % 0.1 %; Eosinophils % 0.1 %; Hematocrit 24.1 % (37.5-50.1); Hemoglobin 7.5 g/dL (12.9-16.9); Immature Granulocytes % 0.5 % (0-4); Lymphocytes # 0.9 K/mcL (0.6-4.6); Lymphocytes % 10.9 %; Mean Corpuscular HGB Conc 31.1 g/dL (31.6-35.5); Mean Corpuscular Hemoglobin 29.5 pg (28.0-33.3); Mean Corpuscular Volume 94.9 fL (83.0-100.0); Mean Platelet Volume 10.6 fL (9.4-12.4); Monocytes # 0.5 K/mcL (0.0-1.3); Monocytes % 5.7 %; Neutrophils # 6.9 K/mcL (1.6-8.9); Platelet Count 161 K/mcL (140-400); Red Blood Count 2.54 M/mcL (4.19-5.50); Red Cell Distribution Width 18.1 % (11.5-14.5); Segmented Neutrophils % 82.7 %; White Blood Count 8.4 K/mcL (4.3-11.1)
[2020-11-29] MEDS ORDERED: Ondansetron 4 MG/2 ML VIAL ONE (06:29)
[2020-11-29] MEDS: Ondansetron 4 MG/2 ML VIAL IVP PRN ×2 (06:38→16:46)
[2020-11-29] MEDS: 0.9 % Sodium Chloride 1,000 ML IVC SCH ×3 (07:46→20:24)
[2020-11-29] MEDS ORDERED: Lidocaine Jelly 6ml 1 APPL/6 ML JEL.PF.APP MM ONE (09:56)
[2020-11-29] MEDS ORDERED: 0.9 % Sodium Chloride 250 ML ONE (13:06)
[2020-11-29] MEDS ORDERED: Chloraseptic Spray 177 ML BOTTLE MM PRN (19:49)
[2020-11-29] MEDS: *HR* LORazepam 2 MG/ML VIAL IVP PRN (20:06)
[2020-11-30] MEDS: Ondansetron 4 MG/2 ML VIAL IVP PRN (00:59)
[2020-11-30] MEDS: *HR* LORazepam 2 MG/ML VIAL IVP PRN (04:28)
[2020-11-30] MEDS: 0.9 % Sodium Chloride 1,000 ML IVC SCH ×2 (04:28→12:28)
[2020-11-30 05:03] LABS: Basophils % 0.3 %; Eosinophils % 0.3 %; Hematocrit 29.3 % (37.5-50.1); Immature Granulocytes % 0.1 % (0-4); Lymphocytes # 0.9 K/mcL (0.6-4.6); Lymphocytes % 13.2 %; Mean Corpuscular HGB Conc 31.7 g/dL (31.6-35.5); Mean Corpuscular Hemoglobin 29.7 pg (28.0-33.3); Mean Corpuscular Volume 93.6 fL (83.0-100.0); Mean Platelet Volume 10.5 fL (9.4-12.4); Monocytes # 0.6 K/mcL (0.0-1.3); Neutrophils # 5.3 K/mcL (1.6-8.9); Platelet Count 186 K/mcL (140-400); Red Blood Count 3.13 M/mcL (4.19-5.50); Red Cell Distribution Width 17.4 % (11.5-14.5); Segmented Neutrophils % 77.1 %; White Blood Count 6.9 K/mcL (4.3-11.1)
[2020-11-30 05:10] LABS: Hemoglobin 9.3 g/dL (12.9-16.9)
[2020-11-30] MEDS ORDERED: Haloperidol Lactate 5 MG/ML VIAL IVP ONE (05:50)
[2020-11-30 06:59] LABS: BUN/Creatinine Ratio 14 (6-26); Blood Urea Nitrogen 15 mg/dL (8-23); Calcium 8.2 mg/dL (8.6-10.3); Carbon Dioxide 26 mEq/L (23-29); Chloride 105 mEq/L (98-107); Glucose 106 mg/dL (70-105); Osmolality,Calculated 285 (280-300); Sodium 137 mEq/L (136-145); eGFR For African Americans > 60 (> 60); eGFR For Non-African Americans > 60 (> 60)
[2020-12-01] MEDS: 0.9 % Sodium Chloride 1,000 ML IVC SCH (01:54)
[2020-12-01 05:08] LABS: Basophils % 0.4 %; Eosinophils # 0.1 K/mcL (0.0-0.6); Eosinophils % 1.9 %; Hematocrit 28.7 % (37.5-50.1); Hemoglobin 8.9 g/dL (12.9-16.9); Immature Granulocytes % 0.2 % (0-4); Lymphocytes # 1.2 K/mcL (0.6-4.6); Lymphocytes % 25.2 %; Mean Corpuscular Hemoglobin 29.1 pg (28.0-33.3); Mean Corpuscular Volume 93.8 fL (83.0-100.0); Mean Platelet Volume 10.4 fL (9.4-12.4); Monocytes # 0.4 K/mcL (0.0-1.3); Monocytes % 9.2 %; Platelet Count 173 K/mcL (140-400); Red Blood Count 3.06 M/mcL (4.19-5.50); Segmented Neutrophils % 63.1 %; White Blood Count 4.8 K/mcL (4.3-11.1)
[2020-12-01 05:26] LABS: BUN/Creatinine Ratio 13 (6-26); Blood Urea Nitrogen 13 mg/dL (8-23); Calcium 8.1 mg/dL (8.6-10.3); Carbon Dioxide 24 mEq/L (23-29); Chloride 108 mEq/L (98-107); Glucose 91 mg/dL (70-105); Osmolality,Calculated 284 (280-300); Potassium 3.7 mEq/L (3.5-5.1); Sodium 137 mEq/L (136-145); eGFR For African Americans > 60 (> 60); eGFR For Non-African Americans > 60 (> 60)
[2020-12-01 15:09] VITALS: BP 109/60
== END 2020-12-01 17:12 | disposition home or self-care (01) | DRG 330 ==
LOC: SAMDAY 09:39 → 3ANU 15:42
PROVIDERS: ADMIT Surgery; ATTEND Surgery